=== PATIENT | female | born 1940 | race Asian ===

== ENCOUNTER → 2016-09-27 | Outpatient (CLI) | payer OTHER, SELFPAY ==
--- NOTE | 2016-09-28 08:39 | CR ---
EXAMINATION: Pelvis and bilateral hips HISTORY: Pain COMPARISON: None TECHNIQUE: AP pelvis and 2 views of the hips bilaterally FINDINGS: There is no acute osseous abnormality, dislocation, or fracture identified. Bone mineraliz ation appears osteopenic. The SI joints are symmetric. Joint spaces are grossly preserved. IMPRESSION: Osteopenia without acute osseous abnormality.
--- NOTE | 2016-09-28 08:43 | CR ---
EXAMINATION: Lumbar spine HISTORY: Pain COMPARISON: None TECHNIQUE: AP and lateral views FINDINGS: The lumbar spinal alignment appears grossly normal. Mild to moderate compression deformiti es are noted within the lower thoracic spine. The osseous structures appear osteopenic. Moderate dis c space narrowing is noted at L5-S1. Mild marginal osteophytes are noted. The SI joints are symmetri c. IMPRESSION: 1. Osteopenia with several compression deformities within the thoracic spine. 2. Mild degenerative changes noted within the lumbar spine.
== END ==
LOC: MW.CHORTHO 08:09
PROVIDERS: ATTEND Physician Assistant
DX: M25.551 Pain in right hip (principal); M25.552 Pain in left hip; M85.88 Other specified disorders of bone density and structure, other site; M47.816 Spondylosis without myelopathy or radiculopathy, lumbar region
CPT/HCPCS: 72100; 72100-26; 73521; 73521-26

== ENCOUNTER 2017-04-12 23:35 | Observation (INO) | payer OTHER, SELFPAY ==
[2017-04-12] MEDS ORDERED: Aspirin 81 MG Tab.Chew PO ONE (23:42)
--- NOTE | 2017-04-12 23:44 | EDM.PDOC ---
ED HPI GENERAL MEDICAL PROBLEM - General Stated Complaint: CHEST PAIN Time Seen by Provider: 04/12/17 23:42 Source of Information: Reports: Patient - History of Present Illness INITIAL COMMENTS - FREE TEXT/NARRATIVE: HISTORY AND PHYSICAL: History of present illness: []Patient presents via EMS She's had chest pain for 30-40 minutes she rates 10 out of 10 however she does not appear to be in any pain no pain behaviors she states she is short of breath. She does not appear short of breath no diaphoresis nor radiation to arm neck or jaw Patient has a clear language barrier No nausea vomiting chills sweats no headache dizziness palpitation no bowel or urine symptoms Patient had taken 324 mg aspirin this morning Patient interview with medical interpreter her [place] nurses are able to speak her [place] language and history is similar but more complete Patient has had chest pain off and on over the last week or 2 she has seen her primary care Dr. Costa md last week. At 6 PM tonight she developed 10 out of 10 pain which lasted for a short period is improved to a 5 out of 10 at current again she does not elicit pain behaviors no shortness of breath or diaphoresis no radiation to arm neck or jaw. She does have history of pacemaker placement denies any other cardiac procedure at do note that she is on Plavix she does not know if she has stents present or not but she denies surgical procedure or cardiac catheter. She does state she has a history of hypertension and confirms aspirin was taken this morning Patient also reports fall from a standing position 2 weeks prior which coincides of some low back pain she is describing tonight high lumbar low thoracic region Review of systems: As per history of present illness and below otherwise all systems reviewed and negative. Past medical history: As per history of present illness and as reviewed below otherwise noncontributory. Surgical history: As per history of present illness and as reviewed below otherwise noncontributory. Social history: No reported history of drug or alcohol abuse. Family history: As per history of present illness and as reviewed below otherwise noncontributory. Physical exam: HEENT: Atraumatic, normocephalic, pupils reactive, negative for conjunctival pallor or scleral icterus, mucous membranes moist, throat clear, neck supple, nontender, trachea midline. Lungs: Clear to auscultation, breath sounds equal bilaterally, chest nontender. Heart: S1S2, regular, negative for clicks, rubs, or JVD. Abdomen: Soft, nondistended, nontender. Negative for masses or hepatosplenomegaly. Negative for costovertebral tenderness. Pelvis: Stable nontender. Genitourinary: Deferred. Rectal: Deferred. Extremities: Atraumatic, negative for cords or calf pain. Neurovascular unremarkable. Neuro: Awake, alert, oriented. Cranial nerves II through XII unremarkable. Cerebellum unremarkable. Motor and sensory unremarkable throughout. Exam nonfocal. Diagnostics: []Lab as below EKG Chest 1 view Therapeutics: []Saline 1 25 mL per hour Aspirin 324 mg chewable As provided 1 dose of nitroglycerin glycerin sublingual 0.4 with no change Impression: []Atypical chest pain Pacemaker in place Compression fractures T9 and T12 noted no interval change Patient does have elevated MB and negative troponin, there is stroke history which is put her on aspirin and Plavix, I do not appreciate any weakness at this time I would indicate further stroke to elevate the MB. Dr. Edgar and I did discuss this he will sort this out on an observation basis. My Dragon voice recognition has bolded this print.( I'm not trying to emphasize any point with bold print) Chronic history of baseline Definitive disposition and diagnosis as appropriate pending reevaluation and review of above. Middle Chest Pain Score (Numeric/FACES): 5 - Related Data Allergies Allergy/AdvReac Type Severity Reaction Status Date / Time No Known Allergies Allergy Verified 04/13/17 00:04 Home Meds: Home Meds Aspirin [Halfprin] 81 mg PO BRK 06/10/16 [History] Bisoprolol [Zebeta] 5 mg PO BID 06/10/16 [History] Clopidogrel [Plavix] 75 mg PO DAILY 06/10/16 [History] Losartan [Cozaar] 25 mg PO DAILY 06/10/16 [History] atorvaSTATin [Lipitor] 10 mg PO BEDTIME 06/10/16 [History] traMADol [Ultram] 50 mg PO BID 06/10/16 [History] Past Medical History HEENT History: Reports: Glaucoma Cardiovascular History: Reports: Arrhythmia, Hypertension, Pacemaker Musculoskeletal History: Reports: Arthritis - Past Surgical History HEENT Surgical History: Reports: Other (See Below) Social & Family History - Family History Family Medical History: Noncontributory - Tobacco Use Smoking Status *Q: Never Smoker - Caffeine Use Caffeine Use: Reports: None - Recreational Drug Use Recreational Drug Use: No ED ROS GENERAL - Review of Systems Review Of Systems: ROS reveals no pertinent complaints other than HPI. ED EXAM, GENERAL - Physical Exam Exam: See Below Course - Vital Signs Last Recorded V/S: Last Vital Signs Temp 36.6 C 04/12/17 23:48 Pulse 70 04/13/17 00:45 Resp 22 H 04/13/17 00:45 BP 123/71 04/13/17 00:45 Pulse Ox 99 04/13/17 00:45 - Orders/Labs/Meds Orders: Active Orders 24 hr Category Date Time Status Chest 1V Frontal [CR] Stat Exams 04/12/17 23:48 Taken Lumbar Spine 2 or 3V [CR] Stat Exams 04/12/17 23:52 Taken Thoracic Spine 2V [CR] Stat Exams 04/12/17 23:53 Taken B-TYPE NATRIURETIC PEPTIDE,BNP [CHEM] Stat Lab 04/13/17 00:44 Received UA W/MICROSCOPIC [URIN] Stat Lab 04/12/17 23:42 Uncollected Sodium Chloride 0.9% [Normal Saline] 1,000 ml Med 04/12/17 23:45 Active IV STAT Medication Orders Sodium Chloride (Normal Saline) 1,000 mls @ 125 mls/hr IV STAT MARIA TERESA Last Admin: 04/12/17 23:56 Dose: 125 mls/hr Labs: Laboratory Tests 04/12/17 04/12/17 04/12/17 Range/Units 23:52 23:52 23:52 WBC 9.58 (4.0-11.0) K/uL RBC 3.78 L (4.30-5.90) M/uL Hgb 10.4 L (12.0-16.0) g/dL Hct 32.8 L (36.0-46.0) % MCV 86.8 (80.0-98.0) fL MCH 27.5 (27.0-32.0) pg MCHC 31.7 (31.0-37.0) g/dL RDW Std Deviation 50.1 (28.0-62.0) fl RDW Coeff of [place] 16 H (11.0-15.0) % Plt Count 309 (150-400) K/uL MPV 9.30 (7.40-12.00) fL Neut % (Auto) 76.0 (48.0-80.0) % Lymph % (Auto) 13.6 L (16.0-40.0) % [place] % (Auto) 9.5 (0.0-15.0) % Eos % (Auto) 0.7 (0.0-7.0) % Baso % (Auto) 0.2 (0.0-1.5) % Neut # (Auto) 7.3 H (1.4-5.7) K/uL Lymph # (Auto) 1.3 (0.6-2.4) K/uL [place] # (Auto) 0.9 H (0.0-0.8) K/uL Eos # (Auto) 0.1 (0.0-0.7) K/uL Baso # (Auto) 0.0 (0.0-0.1) K/uL Nucleated RBC % 0.0 /100WBC Nucleated RBCs # 0 K/uL Sodium 132 L (136-146) mmol/L Potassium 5.0 (3.5-5.1) mmol/L Chloride 101 (98-110) mmol/L Carbon Dioxide 22 (21-31) mmol/L BUN 40 H (6.0-23.0) mg/dL Creatinine 1.5 (0.6-1.5) mg/dL Est Cr Clr Drug Dosing 21.66 mL/min Estimated GFR (MDRD) 33.9 ml/min Glucose 132 H (60-110) mg/dL Calcium 8.8 (8.8-10.8) mg/dL Total Bilirubin 0.3 (0.1-1.5) mg/dL AST 36 (5-40) IU/L ALT 23 (8-54) IU/L Alkaline Phosphatase 149 (40-150) Creatine Kinase 233 (9-236) IU/L CK-MB (CK-2) 23.1 H (0-6.6) ng/ml Troponin I < 0.10 (0.0-0.29) NG/ML Total Protein 9.4 H (6.0-8.0) g/dL Albumin 3.1 L (3.4-4.8) g/dL Globulin 6.3 H (2.0-3.5) g/dL Albumin/Globulin Ratio 0.5 L (1.3-2.8) Amylase 74 (10-90) U/L Lipase 45 (7-80) U/L Meds: Medications Generic Name Dose Route Start Last Admin Trade Name Rashad PRN Reason Stop Dose Admin Sodium Chloride 1,000 mls @ 125 mls/hr 04/12/17 23:45 04/12/17 23:56 Normal Saline IV 125 mls/hr STAT MARIA TERESA Administration Discontinued Medications Generic Name Dose Route Start Last Admin Trade Name Rashad PRN Reason Stop Dose Admin Aspirin 324 mg 04/12/17 23:42 04/12/17 23:57 Aspirin PO 04/12/17 23:43 324 mg ONETIME ONE Administration Metoprolol Tartrate 5 mg 04/12/17 23:45 04/12/17 23:57 Lopressor IVPUSH 04/12/17 23:56 5 mg Q5M MARIA TERESA Administration Departure - Departure Time of Disposition: 00:54 Disposition: Refer to Observation Condition: Fair Clinical Impression: Atypical chest pain, Elevated CK-MB level - Discharge Information Referrals: PCP,None [Primary Care Provider] - - My Orders Last 24 Hours: My Active Orders 04/12/17 23:42 UA W/MICROSCOPIC [URIN] Stat 04/12/17 23:45 Sodium Chloride 0.9% [Normal Saline] 1,000 ml IV STAT 04/12/17 23:48 Chest 1V Frontal [CR] Stat 04/12/17 23:52 Lumbar Spine 2 or 3V [CR] Stat 04/12/17 23:53 Thoracic Spine 2V [CR] Stat 04/13/17 00:44 B-TYPE NATRIURETIC PEPTIDE,BNP [CHEM] Stat - Assessment/Plan Last 24 Hours: My Active Orders 04/12/17 23:42 UA W/MICROSCOPIC [URIN] Stat 04/12/17 23:45 Sodium Chloride 0.9% [Normal Saline] 1,000 ml IV STAT 04/12/17 23:48 Chest 1V Frontal [CR] Stat 04/12/17 23:52 Lumbar Spine 2 or 3V [CR] Stat 04/12/17 23:53 Thoracic Spine 2V [CR] Stat 04/13/17 00:44 B-TYPE NATRIURETIC PEPTIDE,BNP [CHEM] Stat
[2017-04-12] MEDS ORDERED: Sodium Chloride 0.9% 1,000 ML IV SCH (23:45)
[2017-04-12] MEDS: Metoprolol Tartrate 5 MG/5 ML SDV IVPUSH SCH (23:57)
[2017-04-13] MEDS ORDERED: Acetaminophen 325 MG Tab PO PRN (02:01)
[2017-04-13] MEDS ORDERED: Ondansetron 4 MG Tab PO PRN (02:01)
[2017-04-13] MEDS ORDERED: Morphine 2 MG/ML Syringe IVPUSH PRN (02:01)
[2017-04-13] MEDS: Metoprolol Tartrate 5 MG/5 ML SDV IVPUSH SCH ×2 (07:28→07:29)
--- NOTE | 2017-04-13 08:34 | PCM.DCSUM1 ---
Discharge Summary - Discharge Data Discharge Disposition: Home, Self-Care 01 Condition: Fair - Discharge Plan Home Medications: Home Meds Aspirin [Halfprin] 81 mg PO BRK 06/10/16 [History] Bisoprolol [Zebeta] 5 mg PO DAILY 06/10/16 [History] Clopidogrel [Plavix] 75 mg PO DAILY 06/10/16 [History] Losartan [Cozaar] 25 mg PO DAILY 06/10/16 [History] atorvaSTATin [Lipitor] 10 mg PO BEDTIME 06/10/16 [History] Forms: ED Department Discharge Referrals: PCP,None [Primary Care Provider] - - Patient Data Vitals - Most Recent: Last Vital Signs Temp 97.5 F 04/13/17 04:00 Pulse 66 04/13/17 04:00 Resp 16 04/13/17 04:00 BP 130/59 L 04/13/17 04:00 Pulse Ox 100 04/13/17 04:00 Weight - Most Recent: 41.7 kg I&O - Last 24 hours: Intake & Output 04/12/17 04/13/17 04/13/17 22:59 06:59 14:59 Intake Total 750 Balance 750 Lab Results - Last 24 hrs: Laboratory Results - last 24 hr 04/13/17 04/13/17 Range/Units 01:00 06:12 Troponin I < 0.10 (0.0-0.29) NG/ML Urine Color YELLOW Urine Appearance HAZY Urine pH 5.5 (5.0-8.0) Ur Specific [place] 1.025 (1.001-1.035) Urine Protein TRACE (NEGATIVE) mg/dL Urine Glucose (UA) NEGATIVE (NEGATIVE) mg/dL Urine Ketones NEGATIVE (NEGATIVE) mg/dL Urine Occult Blood NEGATIVE (NEGATIVE) Urine Nitrite NEGATIVE (NEGATIVE) Urine Bilirubin NEGATIVE (NEGATIVE) Urine Urobilinogen 0.2 (<2.0) EU/dL Ur Leukocyte Esterase TRACE (NEGATIVE) Urine RBC 1-3 (0-2/HPF) Urine WBC 3-5 (0-5/HPF) Ur Epithelial Cells FEW (NONE-FEW) Urine Bacteria FEW (NEGATIVE) Med Orders - Current: Current Medications Acetaminophen (Tylenol) 650 mg PO Q6H PRN PRN Reason: Pain Morphine Sulfate (Morphine) 2 mg IVPUSH Q4H PRN PRN Reason: Chest Pain Ondansetron HCl (Zofran) 4 mg PO Q6H PRN PRN Reason: Nausea/Vomiting Last Admin: 04/13/17 07:29 Dose: 4 mg Discontinued Medications Aspirin (Aspirin) 324 mg PO ONETIME ONE Stop: 04/12/17 23:43 Last Admin: 04/12/17 23:57 Dose: 324 mg Sodium Chloride (Normal Saline) 1,000 mls @ 125 mls/hr IV STAT MARIA TERESA Last Admin: 04/12/17 23:56 Dose: 125 mls/hr Metoprolol Tartrate (Lopressor) 5 mg IVPUSH Q5M MARIA TERESA Stop: 04/12/17 23:56 Last Admin: 04/13/17 07:29 Dose: Not Given *Q Meaningful Use (DIS) - VTE *Q VTE Criteria *Q: - Stroke *Q Stroke Criteria *Q: - AMI *Q AMI Criteria *Q:
--- NOTE | 2017-04-13 08:34 | PCM.HP ---
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 She reports she hasn't been feeling well recently and has been losing weight and has a poor appetite. She reports this pain as an achey feeling and it was like she couldn't take a deep breath, " I thought I was dying." She reports she is on "a lot of medications by Dr Nesbitt", her PCP. She recently saw him and had a US of neck lump to her R and for the concerns of weight loss. She is feeling better this morning no chest pain or SOB. She also reports her grand son has jumped on her playing around causing some upper back pain. SHe does have a significant hx of osteoporosis and back pain. In the ED, Hgb 10.4, Na 132, BUN 40, Cr 1.5, which is elevated from baseline [address] Nesbitt. Troponin negative, EKG SR with noted LVH, no ST segment elevation. CXR revealed scarring in r apex of pleural parenchyma, mild noted in left apex. Pacer noted to Left chest, heart silhouette normal in size, it noted a new convex density over the paratracheal region measuring 4.5 cm in diameter, recommended chest CT to further evaluate. Lumbar spine xray noted moderate compression deformity of T12, likely chronic, thoracic spine xray noted moderate to severe compression deformities of T9 and t12, severe diffuse osteopenia present. I reveiwed recent records from Dr. Nesbitt, she had complaints of weight loss and poor appetite at last appointment. Dr. Nesbitt had started work up for anemia and ordered for her to test her stools for occult blood due to anemia. I ordered a iron panel which he recommended as well, I will add a peripheral smear on too. She also had an ultrasound for R neck lump, biopsy was recommended will check to see if this was set up, if not with facilitate this as well. She was to be set up with cardiology for check up due to history and pacemaker interrogation. Middle Chest Pain Score (Numeric/FACES): 2 - Related Data Allergies/Adverse Reactions: Allergies Allergy/AdvReac Type Severity Reaction Status Date / Time No Known Allergies Allergy Verified 04/13/17 00:04 Home Medications: Home Meds Aspirin [Halfprin] 81 mg PO BRK 06/10/16 [History] Bisoprolol [Zebeta] 5 mg PO DAILY 06/10/16 [History] Clopidogrel [Plavix] 75 mg PO DAILY 06/10/16 [History] Losartan [Cozaar] 25 mg PO DAILY 06/10/16 [History] atorvaSTATin [Lipitor] 10 mg PO BEDTIME 06/10/16 [History] Acetaminophen [Tylenol] 650 mg PO Q6H PRN tablet 04/13/17 [Rx] Past Medical History HEENT History: Reports: Glaucoma Cardiovascular History: Reports: Afib, Hypertension, Pacemaker. Denies: Heart Failure, Stents Other Cardiovascular History: with pacemaker Respiratory History: Reports: SOB. Denies: COPD, PE, Sleep Apnea Gastrointestinal History: Reports: Other (See Below) (poor appetite). Denies: GERD, GI Bleed Genitourinary History: Reports: None ERP PM History: Reports: Musculoskeletal History: Reports: Arthritis, Back Pain, Chronic, Osteoporosis, RA Psychiatric History: Reports: None Endocrine/Metabolic History: Reports: Osteoporosis. Denies: Diabetes, Type II, Hypothyroidism Hematologic History: Reports: Anemia - Infectious Disease History Infectious Disease History: Reports: Chicken Pox - Past Surgical History Female Surgical History: Reports: Section Social & Family History - Family History Family Medical History: Noncontributory - Tobacco Use Smoking Status *Q: Never Smoker Second Hand Smoke Exposure: No - Caffeine Use Caffeine Use: Reports: Soda Other Caffeine Use: daughter states occasional soda drinks - Recreational Drug Use Recreational Drug Use: No - Living Situation & Occupation Living situation: Reports: with Family Occupation: Retired H&P Review of Systems - Review of Systems: Review Of Systems: See Below General: Reports: Decreased Appetite, Weight Loss HEENT: Reports: Other (reports some trouble with swallowing intermittently). Denies: Headaches, Sore Throat Pulmonary: Reports: Shortness of Breath (initially last evening, but no troubles this morning. ). Denies: Wheezing, Cough, Sputum Cardiovascular: Reports: Chest Pain (upon admission, denies now.). Denies: Palpitations, Dyspnea on Exertion, Orthopnea, Edema, Syncope Gastrointestinal: Reports: Anorexia, Flatus. Denies: Abdominal Pain, Black Stool, Bloody Stool, Diarrhea, Nausea, Vomiting Genitourinary: Denies: No Symptoms, Dysuria, Frequency, Burning Musculoskeletal: Reports: Shoulder Pain (R upper shoulder and lower mid back, which is chronic) Neurological: Reports: No Symptoms. Denies: Confusion Hematologic/Lymphatic: Reports: No Symptoms Immunologic: Reports: No Symptoms Exam - Exam Exam: See Below - Vital Signs Vital Signs: Last Vital Signs Temp 97.5 F 04/13/17 04:00 Pulse 66 04/13/17 04:00 Resp 16 04/13/17 04:00 BP 130/59 L 04/13/17 04:00 Pulse Ox 100 04/13/17 04:00 Weight: 41.7 kg - Exam Quality Assessment: Supplemental Oxygen General: Alert, Oriented, Cooperative, Other (Near cachectic looking, very skinny and dry skin) HEENT: Conjunctiva Clear, Hearing Intact, Mucosa Moist & [place], Nares Patent, Pupils Equal, Other (L cleft lip palate repair noted, speech impaired slightly due to this. Missing loose teeth noted.) Neck: Trachea Midline, Other (Fullness and lump noted to R neck near trachea. ) Lungs: Clear to Auscultation, Normal Respiratory Effort Cardiovascular: Regular Rate, Regular Rhythm, Normal S1, Normal S2 GI/Abdominal Exam: Normal Bowel Sounds, Soft, Non-Tender, No Organomegaly, No Distention, No Abnormal Bruit, No Mass, Pelvis Stable Neuro Extensive - Mental Status: Alert, Oriented x3, Normal Mood/Affect, Normal Cognition Psychiatric: Alert, Normal Affect, Normal Mood - Patient Data Lab Results Last 24 hrs: Laboratory Results - last 24 hr 04/13/17 04/13/17 Range/Units 01:00 06:12 Troponin I < 0.10 (0.0-0.29) NG/ML Urine Color YELLOW Urine Appearance HAZY Urine pH 5.5 (5.0-8.0) Ur Specific [place] 1.025 (1.001-1.035) Urine Protein TRACE (NEGATIVE) mg/dL Urine Glucose (UA) NEGATIVE (NEGATIVE) mg/dL Urine Ketones NEGATIVE (NEGATIVE) mg/dL Urine Occult Blood NEGATIVE (NEGATIVE) Urine Nitrite NEGATIVE (NEGATIVE) Urine Bilirubin NEGATIVE (NEGATIVE) Urine Urobilinogen 0.2 (<2.0) EU/dL Ur Leukocyte Esterase TRACE (NEGATIVE) Urine RBC 1-3 (0-2/HPF) Urine WBC 3-5 (0-5/HPF) Ur Epithelial Cells FEW (NONE-FEW) Urine Bacteria FEW (NEGATIVE) Result Diagrams: 04/13/17 08:47 04/13/17 08:47 EKG INTERPRETATION EKG Date: 04/13/17 Rhythm: NSR Rate (Beats/Min): 64 QRS: Other (LVH) *Q Meaningful Use (ADM) - VTE *Q VTE Criteria *Q: - Stroke *Q Stroke Criteria *Q: - AMI *Q AMI Criteria *Q: - Problem List (1) Atypical chest pain SNOMED Code(s): 984024798 ICD Code: R07.89 - OTHER CHEST PAIN Status: Acute Current Visit: Yes (2) Dyspnea SNOMED Code(s): 085765804 ICD Code: R06.00 - DYSPNEA, UNSPECIFIED Status: Acute Current Visit: Yes Qualifiers: Dyspnea type: shortness of breath Qualified Code(s): R06.02 - Shortness of breath; R06.00 - Dyspnea, unspecified; R06.01 - Orthopnea (3) Neck mass SNOMED Code(s): 183838670 ICD Code: R22.1 - LOCALIZED SWELLING, MASS AND LUMP, NECK Status: Acute Current Visit: Yes Problem Details: currently being worked up for and has biopsy scheduled. (4) Anemia SNOMED Code(s): 800014202 ICD Code: D64.9 - ANEMIA, UNSPECIFIED Status: Acute Current Visit: Yes Qualifiers: Anemia type: unspecified type Qualified Code(s): D64.9 - Anemia, unspecified (5) HTN (hypertension) SNOMED Code(s): 66013343 ICD Code: I10 - ESSENTIAL (PRIMARY) HYPERTENSION Status: Chronic Current Visit: Yes Qualifiers: Hypertension type: essential hypertension Qualified Code(s): I10 - Essential (primary) hypertension (6) Dyslipidemia SNOMED Code(s): 442425372 ICD Code: E78.5 - HYPERLIPIDEMIA, UNSPECIFIED Status: Chronic Current Visit: Yes (7) Osteoporosis SNOMED Code(s): 66794180 ICD Code: M81.0 - AGE-RELATED OSTEOPOROSIS W/O CURRENT PATHOLOGICAL FRACTURE Status: Chronic Current Visit: Yes (8) Arthritis SNOMED Code(s): 6438611 ICD Code: M19.90 - UNSPECIFIED OSTEOARTHRITIS, UNSPECIFIED SITE Status: Chronic Current Visit: Yes (9) Chronic back pain SNOMED Code(s): 403887605 ICD Code: M54.9 - DORSALGIA, UNSPECIFIED; G89.29 - OTHER CHRONIC PAIN Status: Chronic Current Visit: Yes Qualifiers: Back pain location: low back pain Back pain laterality: bilateral Sciatica presence: without sciatica Qualified Code(s): M54.5 - Low back pain; G89.29 - Other chronic pain; G89.29 - Other chronic pain (10) History of CVA (cerebrovascular accident) SNOMED Code(s): 704679406 ICD Code: Z86.73 - PRSNL HX OF TIA (TIA), AND CEREB INFRC W/O RESID DEFICITS Status: Chronic Current Visit: Yes (11) Rheumatoid arthritis SNOMED Code(s): 07016191 ICD Code: M06.9 - RHEUMATOID ARTHRITIS, UNSPECIFIED Status: Chronic Current Visit: Yes (12) Hx of cardiac pacemaker SNOMED Code(s): 329827364 ICD Code: Z95.0 - PRESENCE OF CARDIAC PACEMAKER Status: Chronic Current Visit: Yes Problem List Initiated/Reviewed/Updated: Yes Orders Last 24hrs: Active Orders 24 hr Category Date Time Status Admission Status [Patient Status] [ADT] Routine ADT 04/13/17 01:59 Active Cardiac Monitoring [RC] . DIRECTED Care 04/13/17 01:59 Inactive EKG 12 Lead [EKG Documentation Completion] [RC] AM Care 04/13/17 08:00 Active Telemetry Monitoring [Cardiac Monitoring] [RC] . Care 04/13/17 01:59 Active DIRECTED Heart Healthy Diet [DIET] Diet 04/13/17 Breakfast Active TROPONIN I [CHEM] Q6H Lab 04/13/17 11:50 Ordered Acetaminophen [Tylenol] Med 04/13/17 02:01 Active 650 mg PO Q6H PRN Morphine Med 04/13/17 02:01 Active 2 mg IVPUSH Q4H PRN Ondansetron [Zofran] Med 04/13/17 02:01 Active 4 mg PO Q6H PRN Medication Orders Acetaminophen (Tylenol) 650 mg PO Q6H PRN PRN Reason: Pain Morphine Sulfate (Morphine) 2 mg IVPUSH Q4H PRN PRN Reason: Chest Pain Ondansetron HCl (Zofran) 4 mg PO Q6H PRN PRN Reason: Nausea/Vomiting Last Admin: 04/13/17 07:29 Dose: 4 mg Assessment/Plan Comment:: This 76 year old female admitted for atypical chest pain and SOB. 1. Atypical chest pain: Trending troponins. Telemetry, SR. Does have hx of afib. Will monitor, pain does not appear to be cardiac in nature, but does have referral to follow up with Dr. Burger for pacemaker and cardiac hx. Pain likely due to musculoskeletal concerns and hx of osteoporosis. Also concerned about mass in neck. SOB likely secondary to pain. 2. Neck mass: Will obtain chest CT today. She does have biopsy scheduled April 20 with our radiology. 3. Anemia: Iron studies and peripheral smear ordered today. Will pass along to Dr. Nesbitt. She denies black or bloody stools. VTE prophylaxis: SCDs for now due to new anemia. Dispo: Probable discharge this afternoon after CT and last troponin DISCHARGE DIAGNOSES: Atypical chest pain- likely musculoskeletal in nature HTN Dyslipidemia HX pacemaker Hx a fib Dianna wsa admitted and ACS ruled out, all troponins negative with telemetry SR with no ST segment changes. She is complaining of some shoulder pain and low back pain, achey in nature. pain is reproducible to shoulder and back with movement and palpation. Pain is likely musculoskeletal in nature due to history of grandson climbing and jumping on her and hx of osteoporosis and compression fractures. She should not be doing strenuous activities and family should be careful with grandson near her. She has follow up with Dr. Nesbitt scheduled as well as with Dr. Burger as previously scheduled. She also has biopsy of R neck mass next week as well. CT of chest revealed extensive biapical scarring with volume loss, secondary to hx of TB. the convex irregularity likely represented superior positioning of right pulmonary artery due to volume loss, central airways grossly clear, moderate compression deformities with thoracic spine.Iron studies reveal iron defieciency anemia, peripheral smear pending, Dr. Nesbitt, PCP to follow. Reports she is taking iron supplements at home. She will be discharge today with follow ups listed above. She is to return to ED or clinic if concerns should arise.
[2017-04-13] MEDS ORDERED: Sodium Chloride 0.9% 1,000 ML IV SCH (08:45)
[2017-04-13 11:58] VITALS: BP 105/57
[2017-04-13] MEDS ORDERED: Clopidogrel 75 MG Tab PO SCH (13:30)
--- NOTE | 2017-04-13 13:38 | CR ---
EXAM DATE: 04/13/17 PATIENT'S AGE: 76 Patient: ALIYA TOWNSEND Facility: [place], [place] Site . Site : 1940 Study: XRay Spine Lumbar [id number]/5/2017 12:21:16 AM Ordering Physician: Tabitha Duarte Final Report: INDICATION: Low back pain from a fall TECHNIQUE: Lumbar spine radiograph 3 view COMPARISON: None FINDINGS: Bones: Alignment is normal. Moderate compression deformity of T12 is present and likely chronic. Joints: Moderate to severe degenerative disc narrowing seen at L5-S1. The facet joints are unremarkable in appearance. Soft tissues: Unremarkable. IMPRESSION: 1. Moderate compression deformity of T12 is present and likely chronic. Dictated by Marcus Benavides MD @ 04/13/2017 12:22:58 AM Dictated by: Marcus Benavides MD @ 04/13/2017 00:23:04 (Electronic Signature) Report Signed by Proxy. RIGO
--- NOTE | 2017-04-13 13:38 | CR ---
EXAM DATE: 04/13/17 PATIENT'S AGE: 76 Patient: ALIYA TOWNSEND Facility: [place], [place] Site . Site : 1940 Study: XRay Chest [id number]/5/2017 12:21:32 AM Ordering Physician: Tabitha Duarte Final Report: INDICATION: Chest pain from a fall TECHNIQUE: Chest radiograph 1 view COMPARISON: None FINDINGS: Cardiovascular and mediastinum: The heart silhouette is normal in size and morphology. There is a convex density over the right paratracheal region measuring 4.5 cm in diameter. Left cardiac pacer is noted with leads in the right ventricle. Lungs and pleural spaces: Pleural parenchymal scarring is seen in the right apex with architectural distortion. Mild scarring is seen in the left apex. No sign of pleural effusion seen. No pneumothorax is identified. Bones and soft tissues: No significant findings. IMPRESSION: 1. There is a convex density over the right paratracheal region measuring 4.5 cm in diameter. This may be due to cephalad retraction of the left hilum from new right apical scarring. Assessment with chest CT may be helpful to exclude mediastinal mass or aneurysm. Dictated by Marcus Benavides MD @ 04/13/2017 12:24:50 AM Dictated by: Marcus Benavides MD @ 04/13/2017 00:25:06 (Electronic Signature) Report Signed by Proxy. [facility] CENTERRuby
--- NOTE | 2017-04-13 13:39 | CR ---
EXAM DATE: 04/13/17 PATIENT'S AGE: 76 Patient: ALIYA TOWNSEND Facility: [place], [place] Site . Site : 1940 Study: XRay Spine Thoracic [id number]/5/2017 12:21:48 AM Ordering Physician: Tabitha Duarte Final Report: INDICATION: Mid back pain from a fall TECHNIQUE: Thoracic spine radiograph 3 view COMPARISON: 09/27/2016. FINDINGS: Bones: Alignment is normal. Moderate to severe compression deformities of T9 and T12 are noted without interval change. The cervicothoracic junction is not well visualized on the lateral exam. Severe diffuse osteopenia is present. Joints: Disc spaces are unremarkable. The facet joints are unremarkable in appearance. Soft tissues: Unremarkable. IMPRESSION: 1. Moderate to severe compression deformities of T9 and T12 are noted without interval change. 2. The cervicothoracic region is not well seen. If there is pain or tenderness in this region, evaluation with a Swimmer`s view is recommended. Dictated by Marcus Benavides MD @ 04/13/2017 12:26:54 AM Dictated by: Marcus Benavides MD @ 04/13/2017 00:26:57 (Electronic Signature) Report Signed by Proxy. RIGO
--- NOTE | 2017-04-13 13:56 | CT ---
EXAMINATION: CT chest without contrast HISTORY: Convex density within the right paratracheal region. COMPARISON: Chest radiograph dated 04/13/2017 TECHNIQUE: Axial CT images obtained through the chest without contrast. Coronal and sagittal reconstr uctions obtained. FINDINGS: There is prominent biapical scarring with volume loss noted within the right upper lobe. Sc arring and volume loss also noted within the lingula and right middle lobes. No definite discrete nod ule. The heart is normal in size without a pericardial effusion. The convex irregularity previously d escribed likely represent superior positioning of the right pulmonary artery secondary to volume loss . No bulky mediastinal lymphadenopathy. Nonpathologically enlarged bilateral axillary lymph nodes not ed. There is a left-sided ICD. No pneumothorax or pleural effusion. The central airways are grossly c lear. The visualized images of the upper abdomen appear normal. Multiple [id number] compression defor mities noted within the thoracic spine most prominent at T7, T9, T12. IMPRESSION: 1. Extensive biapical scarring and volume loss most prominent on the right. 2. The convex irregularity previously mentioned cathy right main pulmonary artery. 3. Multiple [id number] compression deformities within the thoracic spine, age indeterminate.
[2017-04-13] MEDS ORDERED: atorvaSTATin 10 MG Tab PO SCH (21:00)
[2017-04-14] MEDS ORDERED: Aspirin 81 MG Tab.EC PO SCH (08:00)
[2017-04-14] MEDS ORDERED: BISOPROLOL 5 MG PO SCH (09:00)
[2017-04-14] MEDS ORDERED: Losartan 50 MG Tab PO SCH (09:00)
== END 2017-04-13 15:43 | disposition home or self-care (01) ==
LOC: MW.ED 23:35 → MW.MS 04-13 00:56
PROVIDERS: ADMIT Internal Medicine; ATTEND Internal Medicine
DX: R07.89 Other chest pain (principal); R06.00 Dyspnea, unspecified; R22.1 Localized swelling, mass and lump, neck; D64.9 Anemia, unspecified; I10 Essential (primary) hypertension; E78.5 Hyperlipidemia, unspecified; M81.0 Age-related osteoporosis without current pathological fracture; M19.90 Unspecified osteoarthritis, unspecified site; M54.9 Dorsalgia, unspecified; G89.29 Other chronic pain; M06.9 Rheumatoid arthritis, unspecified; I48.91 Unspecified atrial fibrillation; Z86.73 Personal history of transient ischemic attack (TIA), and cerebral infarction without residual deficits; Z79.02 Long term (current) use of antithrombotics/antiplatelets; Z79.82 Long term (current) use of aspirin; Z79.899 Other long term (current) drug therapy; Z95.0 Presence of cardiac pacemaker; Z98.890 Other specified postprocedural states
CPT/HCPCS: 36415; 71010; 71250; 72070; 72100; 80053; 81001; 82150; 82550; 82553; 82607; 82728; 82746; 83550; 83690; 83735; 83880; 84484; 85025; 85045; 88104; 93005; 96361; 96374; 99285; A9270; J7040; 96375; 99283; G0378

== ENCOUNTER 2017-05-04 07:18 | Inpatient (IN) | payer OTHER, SELFPAY ==
[2017-05-04] MEDS ORDERED: Sodium Chloride 0.9% 2.5 ML Syringe FLUSH PRN (07:21)
[2017-05-04] MEDS ORDERED: Sodium Chloride 0.9% 10 ML Syringe FLUSH PRN (07:21)
[2017-05-04] MEDS ORDERED: Sodium Chloride 0.9% 1,000 ML IV ONE (07:21)
[2017-05-04 08:39] LABS: CHLORIDE,CL 106 mmol/L (98-110); SODIUM,NA 134 mmol/L (136-146)
[2017-05-04] MEDS ORDERED: Ketorolac 30 MG/ML SDV IVPUSH ONE (08:39)
--- NOTE | 2017-05-04 08:57 | EDM.PDOC ---
ED HPI GENERAL MEDICAL PROBLEM - General Chief Complaint: Abdominal Pain Stated Complaint: AMBULANCE Time Seen by Provider: 05/04/17 07:20 Source of Information: Reports: Patient History Limitations: Reports: No Limitations - History of Present Illness INITIAL COMMENTS - FREE TEXT/NARRATIVE: History of present illness: []Patient developed right-sided abdominal pain at 5:00 this morning with extreme weakness, lightheadedness and dizziness. She also complains of a mild headache. Denies any fevers, chills, nausea, vomiting or diarrhea. Patient has never had a colonoscopy. Review of systems: As per history of present illness and below otherwise all systems reviewed and negative. Past medical history: As per history of present illness and as reviewed below otherwise noncontributory. Surgical history: As per history of present illness and as reviewed below otherwise noncontributory. Social history: No reported history of drug or alcohol abuse. Family history: As per history of present illness and as reviewed below otherwise noncontributory. Physical exam: General: Well developed, well nourished in NAD HEENT: Atraumatic, normocephalic, pupils reactive, negative for conjunctival pallor or scleral icterus, mucous membranes moist, throat clear, neck supple, nontender, trachea midline. Lungs: Clear to auscultation, breath sounds equal bilaterally, chest nontender. Heart: S1S2, regular, negative for clicks, rubs, or JVD. Abdomen: Soft, nondistended, nontender. Negative for masses or hepatosplenomegaly. Negative for costovertebral tenderness. Pelvis: Stable nontender. Genitourinary: Deferred. Rectal: Maroon blood on rectal exam strongly guaiac positive Extremities: Atraumatic, negative for cords or calf pain. Neurovascular unremarkable. Neuro: Awake, alert, oriented. Cranial nerves II through XII unremarkable. Cerebellum unremarkable. Motor and sensory unremarkable throughout. Exam nonfocal. Diagnostics: []Labs showing a decreased H&H 8 and 26. Chemistry showing elevated potassium, CTA abdomen and pelvis preliminary result is normal Therapeutics: []IV hydrated Impression: []GI bleed, anemia, generalized weakness, hyperkalemia Plan: []Admit for further workup Definitive disposition and diagnosis as appropriate pending reevaluation and review of above. Middle Abdominal Pain Score (Numeric/FACES): 5 - Related Data Allergies Allergy/AdvReac Type Severity Reaction Status Date / Time No Known Allergies Allergy Verified 04/13/17 00:04 Home Meds: Home Meds Aspirin [Halfprin] 81 mg PO BRK 06/10/16 [History] Bisoprolol [Zebeta] 5 mg PO DAILY 06/10/16 [History] Clopidogrel [Plavix] 75 mg PO DAILY 06/10/16 [History] Losartan [Cozaar] 25 mg PO DAILY 06/10/16 [History] atorvaSTATin [Lipitor] 10 mg PO BEDTIME 06/10/16 [History] Acetaminophen [Tylenol] 650 mg PO Q6H PRN tablet 04/13/17 [Rx] Past Medical History HEENT History: Reports: Glaucoma Cardiovascular History: Reports: Arrhythmia, Hypertension, Pacemaker Other Cardiovascular History: with pacemaker Respiratory History: Reports: SOB Gastrointestinal History: Reports: Other (See Below) (poor appetite). 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: Musculoskeletal History: Reports: Arthritis Psychiatric History: Reports: None Endocrine/Metabolic History: Reports: Osteoporosis Hematologic History: Reports: Anemia - Infectious Disease History Infectious Disease History: Reports: TB - Past Surgical History Female Surgical History: Reports: Section Social & Family History - Family History Family Medical History: Noncontributory - Tobacco Use Smoking Status *Q: Never Smoker Second Hand Smoke Exposure: No - Caffeine Use Caffeine Use: Reports: None Other Caffeine Use: daughter states occasional soda drinks - Recreational Drug Use Recreational Drug Use: No - Living Situation & Occupation Living situation: Reports: with Family Occupation: Retired ED ROS GENERAL - Review of Systems Review Of Systems: See Below (See history of present illness) ED EXAM, GI/ABD - Physical Exam Exam: See Below (See history of present illness) Course - Vital Signs Last Recorded V/S: Last Vital Signs Temp 36.5 C 05/04/17 10:10 Pulse 74 05/04/17 10:10 Resp 16 05/04/17 10:10 BP 114/61 05/04/17 10:10 Pulse Ox 98 05/04/17 10:10 - Orders/Labs/Meds Orders: Active Orders 24 hr Category Date Time Status EKG Documentation Completion [RC] STAT Care 05/04/17 07:21 Active Sodium Chloride 0.9% [Saline Flush] Med 05/04/17 07:21 Active 10 ml FLUSH ASDIRECTED PRN Sodium Chloride 0.9% [Saline Flush] Med 05/04/17 07:21 Active 2.5 ml FLUSH ASDIRECTED PRN Saline Lock Insert [OM.PC] Stat Oth 05/04/17 07:21 Ordered Medication Orders Sodium Chloride (Saline Flush) 10 ml FLUSH ASDIRECTED PRN PRN Reason: Keep Vein Open Sodium Chloride (Saline Flush) 2.5 ml FLUSH ASDIRECTED PRN PRN Reason: Keep Vein Open Labs: Laboratory Tests 05/04/17 05/04/17 05/04/17 Range/Units 07:41 07:41 08:06 WBC 4.92 (4.0-11.0) K/uL RBC 3.05 L (4.30-5.90) M/uL Hgb 8.3 L (12.0-16.0) g/dL Hct 26.8 L (36.0-46.0) % MCV 87.9 (80.0-98.0) fL MCH 27.2 (27.0-32.0) pg MCHC 31.0 (31.0-37.0) g/dL RDW Std Deviation 51.3 (28.0-62.0) fl RDW Coeff of [place] 16 H (11.0-15.0) % Plt Count 309 (150-400) K/uL MPV 9.50 (7.40-12.00) fL Neut % (Auto) 72.4 (48.0-80.0) % Lymph % (Auto) 18.3 (16.0-40.0) % [place] % (Auto) 7.9 (0.0-15.0) % Eos % (Auto) 1.0 (0.0-7.0) % Baso % (Auto) 0.4 (0.0-1.5) % Neut # (Auto) 3.6 (1.4-5.7) K/uL Lymph # (Auto) 0.9 (0.6-2.4) K/uL [place] # (Auto) 0.4 (0.0-0.8) K/uL Eos # (Auto) 0.1 (0.0-0.7) K/uL Baso # (Auto) 0.0 (0.0-0.1) K/uL Nucleated RBC % 0.0 /100WBC Nucleated RBCs # 0 K/uL Sodium 134 L (136-146) mmol/L Potassium 5.5 H (3.5-5.1) mmol/L Chloride 106 (98-110) mmol/L Carbon Dioxide 22 (21-31) mmol/L BUN 68 H (6.0-23.0) mg/dL Creatinine 0.9 (0.6-1.5) mg/dL Est Cr Clr Drug Dosing 38.48 mL/min Estimated GFR (MDRD) > 60.0 ml/min Glucose 125 H (60-110) mg/dL Calcium 8.0 L (8.8-10.8) mg/dL Total Bilirubin 0.3 (0.1-1.5) mg/dL AST 28 (5-40) IU/L ALT 17 (8-54) IU/L Alkaline Phosphatase 89 (40-150) Troponin I < 0.10 (0.0-0.29) NG/ML Total Protein 7.3 (6.0-8.0) g/dL Albumin 2.7 L (3.4-4.8) g/dL Globulin 4.6 H (2.0-3.5) g/dL Albumin/Globulin Ratio 0.6 L (1.3-2.8) Lipase 38 (7-80) U/L Urine Color Urine Appearance Urine pH (5.0-8.0) Ur Specific [place] (1.001-1.035) Urine Protein (NEGATIVE) mg/dL Urine Glucose (UA) (NEGATIVE) mg/dL Urine Ketones (NEGATIVE) mg/dL Urine Occult Blood (NEGATIVE) Urine Nitrite (NEGATIVE) Urine Bilirubin (NEGATIVE) Urine Urobilinogen (<2.0) EU/dL Ur Leukocyte Esterase (NEGATIVE) Urine RBC (0-2/HPF) Urine WBC (0-5/HPF) Ur Epithelial Cells (NONE-FEW) Urine Bacteria (NEGATIVE) Blood Type O POSITIVE Antibody Screen NEGATIVE 05/04/17 Range/Units 09:08 WBC (4.0-11.0) K/uL RBC (4.30-5.90) M/uL Hgb (12.0-16.0) g/dL Hct (36.0-46.0) % MCV (80.0-98.0) fL MCH (27.0-32.0) pg MCHC (31.0-37.0) g/dL RDW Std Deviation (28.0-62.0) fl RDW Coeff of [place] (11.0-15.0) % Plt Count (150-400) K/uL MPV (7.40-12.00) fL Neut % (Auto) (48.0-80.0) % Lymph % (Auto) (16.0-40.0) % [place] % (Auto) (0.0-15.0) % Eos % (Auto) (0.0-7.0) % Baso % (Auto) (0.0-1.5) % Neut # (Auto) (1.4-5.7) K/uL Lymph # (Auto) (0.6-2.4) K/uL [place] # (Auto) (0.0-0.8) K/uL Eos # (Auto) (0.0-0.7) K/uL Baso # (Auto) (0.0-0.1) K/uL Nucleated RBC % /100WBC Nucleated RBCs # K/uL Sodium (136-146) mmol/L Potassium (3.5-5.1) mmol/L Chloride (98-110) mmol/L Carbon Dioxide (21-31) mmol/L BUN (6.0-23.0) mg/dL Creatinine (0.6-1.5) mg/dL Est Cr Clr Drug Dosing mL/min Estimated GFR (MDRD) ml/min Glucose (60-110) mg/dL Calcium (8.8-10.8) mg/dL Total Bilirubin (0.1-1.5) mg/dL AST (5-40) IU/L ALT (8-54) IU/L Alkaline Phosphatase (40-150) Troponin I (0.0-0.29) NG/ML Total Protein (6.0-8.0) g/dL Albumin (3.4-4.8) g/dL Globulin (2.0-3.5) g/dL Albumin/Globulin Ratio (1.3-2.8) Lipase (7-80) U/L Urine Color YELLOW Urine Appearance CLEAR Urine pH 6.0 (5.0-8.0) Ur Specific [place] 1.010 (1.001-1.035) Urine Protein NEGATIVE (NEGATIVE) mg/dL Urine Glucose (UA) NEGATIVE (NEGATIVE) mg/dL Urine Ketones NEGATIVE (NEGATIVE) mg/dL Urine Occult Blood MODERATE (NEGATIVE) Urine Nitrite NEGATIVE (NEGATIVE) Urine Bilirubin NEGATIVE (NEGATIVE) Urine Urobilinogen 0.2 (<2.0) EU/dL Ur Leukocyte Esterase NEGATIVE (NEGATIVE) Urine RBC 0-1 (0-2/HPF) Urine WBC 0-1 (0-5/HPF) Ur Epithelial Cells RARE (NONE-FEW) Urine Bacteria RARE (NEGATIVE) Blood Type Antibody Screen Meds: Medications Generic Name Dose Route Start Last Admin Trade Name Freq PRN Reason Stop Dose Admin Sodium Chloride 10 ml 05/04/17 07:21 Saline Flush FLUSH ASDIRECTED PRN Keep Vein Open Sodium Chloride 2.5 ml 05/04/17 07:21 Saline Flush FLUSH ASDIRECTED PRN Keep Vein Open Discontinued Medications Generic Name Dose Route Start Last Admin Trade Name Freq PRN Reason Stop Dose Admin Sodium Chloride 1,000 mls @ 999 mls/hr 05/04/17 07:21 05/04/17 07:50 Normal Saline IV 05/04/17 08:21 999 mls/hr .Bolus ONE Administration Iopamidol 110 ml 05/04/17 09:07 05/04/17 09:24 Isovue Multipack-370 (76%) IVPUSH 05/04/17 09:08 70 ml ONETIME STA Administration Ketorolac Tromethamine 15 mg 05/04/17 08:39 05/04/17 08:44 Toradol IVPUSH 05/04/17 08:40 15 mg ONETIME ONE Administration Departure - Departure Time of Disposition: 10:42 Disposition: Admitted As Inpatient 68 Condition: Fair Clinical Impression: Generalized weakness GI bleed Qualifiers: GI bleed type/associated pathology: unspecified gastrointestinal hemorrhage type Qualified Code(s): K92.2 - Gastrointestinal hemorrhage, unspecified Anemia Qualifiers: Anemia type: unspecified type Qualified Code(s): D64.9 - Anemia, unspecified - Discharge Information - My Orders Last 24 Hours: My Active Orders 05/04/17 07:21 EKG Documentation Completion [RC] STAT Sodium Chloride 0.9% [Saline Flush] 10 ml FLUSH ASDIRECTED PRN Sodium Chloride 0.9% [Saline Flush] 2.5 ml FLUSH ASDIRECTED PRN Saline Lock Insert [OM.PC] Stat - Assessment/Plan Last 24 Hours: My Active Orders 05/04/17 07:21 EKG Documentation Completion [RC] STAT Sodium Chloride 0.9% [Saline Flush] 10 ml FLUSH ASDIRECTED PRN Sodium Chloride 0.9% [Saline Flush] 2.5 ml FLUSH ASDIRECTED PRN Saline Lock Insert [OM.PC] Stat
[2017-05-04] MEDS ORDERED: Iopamidol 755 MG/ML 500 ML Multipack Bottle IVPUSH STA (09:07)
--- NOTE | 2017-05-04 10:04 | CT ---
EXAMINATION: CTA abdomen and pelvis HISTORY: Bleeding COMPARISON: None TECHNIQUE: Axial CT images obtained through the abdomen and pelvis before and following the administr ation of 70 mL of Isovue-370 in the left arm. Coronal and sagittal reconstructions obtained. FINDINGS: The lung bases are clear, no pleural effusion. The liver, spleen, and adrenal glands appear grossly unremarkable. There is a mild prominence of the common bile duct and pancreatic duct. The ga llbladder garcia appear mildly thickened however the gallbladder is decompressed. No bulky retroperito mehdi lymphadenopathy or abdominal ascites. The kidneys enhance and function symmetrically without evidence of obstructive uropathy. There is a c yst within the lower pole of the right kidney. The large and small bowel are normal in caliber without evidence of obstruction. No focal pericolonic inflammation or stranding. There is a 3.3 cm left ovarian cyst. Mild atheromatous change noted withi n the aorta and proximal branches without significant stenosis. No CT evidence of a gastrointestinal bleed. Mild degenerative changes noted within the lumbar spine. There is a mild compression deformity noted at T12. IMPRESSION: 1. No acute findings within the abdomen or pelvis. 2. Mild prominence of the common bile duct and pancreatic duct. 3. There is a 3.3 cm simple appearing left ovarian cyst.
[2017-05-04] MEDS ORDERED: Acetaminophen 325 MG Tab PO PRN (10:44)
[2017-05-04] MEDS ORDERED: Sodium Chloride 0.9% 1,000 ML IV SCH (10:45)
[2017-05-04] MEDS ORDERED: Ondansetron 4 MG/2 ML SDV IVPUSH PRN (10:45)
--- NOTE | 2017-05-04 11:03 | PCM.HP ---
H&P History of Present Illness - General Date of Service: 05/04/17 Admit Problem/Dx: Admission Diagnosis/Problem Admission Diagnosis/Problem GI bleed Source of Information: Patient, Other (Daughter) History Limitations: Reports: No Limitations - History of Present Illness Initial Comments - Free Text/Narative: 76-year-old female with past medical history of hypertension and atrial fibrillation with a pacemaker placed in 2012 that is being admitted with a possible GI bleed. Patient presented to the ER after experiencing right-sided abdominal pain at 5 AM this morning associated with weakness, lightheadedness and dizziness. Patient notes that she did experience an episode of a black tarry stool with no terrell blood yesterday. Patient states that she was started on Plavix and aspirin recently as she has an upcoming biopsy for a nodule under her right ear. Patient has no prior history of GI bleed or peptic ulcer disease. Patient denies any fevers, nausea, vomiting or diarrhea. Her appetite is been normal. Patient has never had a colonoscopy or EGD done. Patient denies any hematuria. She currently denies any abdominal pain. She also denies any chest pain, palpitations, shortness of breath, wheezing, cough, other areas of bleeding. ER course: Patient received a normal saline bolus as well as a one-time Toradol IM injection in the ER. CBC shows a normal white blood cell count and hemoglobin of 8.3. Looking at her prior admission at the beginning of April of this year her hemoglobin was 10.4. CMP shows normal liver function tests but an elevated potassium at 5.5 and a BUN of 68. Lipase was negative. Urinalysis was negative. CT of the abdomen/pelvis shows no acute findings and mild prominence of the common bile duct and pancreatic duct. No signs of diverticulitis or diverticulosis. Patient still has her gallbladder and appendix. Middle Abdominal Pain Score (Numeric/FACES): 5 - Related Data Allergies/Adverse Reactions: Allergies Allergy/AdvReac Type Severity Reaction Status Date / Time No Known Allergies Allergy Verified 04/13/17 00:04 Home Medications: Home Meds Aspirin [Halfprin] 81 mg PO BRK 06/10/16 [History] Bisoprolol [Zebeta] 5 mg PO DAILY 06/10/16 [History] Clopidogrel [Plavix] 75 mg PO DAILY 06/10/16 [History] Losartan [Cozaar] 25 mg PO DAILY 06/10/16 [History] atorvaSTATin [Lipitor] 10 mg PO BEDTIME 06/10/16 [History] Acetaminophen [Tylenol] 650 mg PO Q6H PRN tablet 04/13/17 [Rx] Past Medical History HEENT History: Reports: Glaucoma Cardiovascular History: Reports: Arrhythmia, Hypertension, Pacemaker Other Cardiovascular History: with pacemaker Respiratory History: Reports: SOB Gastrointestinal History: Reports: Other (See Below) (poor appetite). 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: Musculoskeletal History: Reports: Arthritis Psychiatric History: Reports: None Endocrine/Metabolic History: Reports: Osteoporosis Hematologic History: Reports: Anemia - Infectious Disease History Infectious Disease History: Reports: TB - Past Surgical History Female Surgical History: Reports: Section Social & Family History - Family History Family Medical History: Noncontributory - Tobacco Use Smoking Status *Q: Never Smoker Second Hand Smoke Exposure: No - Caffeine Use Caffeine Use: Reports: None Other Caffeine Use: daughter states occasional soda drinks - Recreational Drug Use Recreational Drug Use: No - Living Situation & Occupation Living situation: Reports: with Family Occupation: Retired H&P Review of Systems - Review of Systems: Review Of Systems: See Below General: Reports: Weakness HEENT: Reports: No Symptoms Pulmonary: Reports: No Symptoms Cardiovascular: Reports: No Symptoms Gastrointestinal: Reports: Abdominal Pain (Right-sided abdominal pain), Black Stool. Denies: Constipation, Diarrhea, Decreased Appetite, Nausea, Vomiting Genitourinary: Reports: No Symptoms Musculoskeletal: Reports: No Symptoms Skin: Reports: No Symptoms Psychiatric: Reports: No Symptoms Neurological: Reports: No Symptoms Hematologic/Lymphatic: Reports: No Symptoms Immunologic: Reports: No Symptoms Exam - Exam Exam: See Below - Vital Signs Vital Signs: Last Vital Signs Temp 97.7 F 05/04/17 10:10 Pulse 74 05/04/17 10:10 Resp 16 05/04/17 10:10 BP 114/61 05/04/17 10:10 Pulse Ox 98 05/04/17 10:10 Weight: 92 lb 9.506 oz - Exam General: Alert, Oriented, Cooperative HEENT: Conjunctiva Clear, Hearing Intact, Mucosa Moist & [place], Nares Patent, Normal Nasal Septum Neck: Supple, Trachea Midline, 2 Lungs: Clear to Auscultation, Normal Respiratory Effort Cardiovascular: Regular Rate, Regular Rhythm GI/Abdominal Exam: Normal Bowel Sounds, Soft, Non-Tender, No Organomegaly, No Distention, No Abnormal Bruit, No Mass, Pelvis Stable (Female) Exam: Normal Speculum Exam Extremities: Normal Inspection, Normal Range of Motion, Non-Tender, No Pedal Edema, Normal Capillary Refill Peripheral Pulses: 2+: Radial (L), Radial (R), Posterior Tibial (L), Posterior Tibial (R) Skin: Warm, Dry, Intact Neuro Extensive - Mental Status: Alert, Oriented x3, Normal Mood/Affect, Normal Cognition Psychiatric: Alert, Normal Affect, Normal Mood - Patient Data Result Diagrams: 05/04/17 07:41 05/04/17 07:41 *Q Meaningful Use (ADM) - VTE *Q VTE Criteria *Q: - Stroke *Q Stroke Criteria *Q: - AMI *Q AMI Criteria *Q: - Problem List (1) GI bleed SNOMED Code(s): 31118592 ICD Code: K92.2 - GASTROINTESTINAL HEMORRHAGE, UNSPECIFIED Status: Acute Current Visit: Yes Qualifiers: GI bleed type/associated pathology: unspecified gastrointestinal hemorrhage type Qualified Code(s): K92.2 - Gastrointestinal hemorrhage, unspecified Problem List Initiated/Reviewed/Updated: Yes Orders Last 24hrs: Active Orders 24 hr Category Date Time Status Antiembolic Devices [RC] PER UNIT ROUTINE Care 05/04/17 10:47 Ordered Cardiac Monitoring [RC] . DIRECTED Care 05/04/17 10:45 Ordered Cardiac Monitoring [RC] CONTINUOUS Care 05/04/17 10:45 Inactive Height and Weight [RC] DAILY Care 05/04/17 10:45 Ordered Intake and Output [RC] QSHIFT Care 05/04/17 10:45 Ordered Notify Provider Consults [RC] ASDIRECTED Care 05/04/17 10:49 Ordered Notify Provider Vital Signs [RC] ASDIRECTED Care 05/04/17 10:46 Ordered Oxygen Therapy [RC] PRN Care 05/04/17 10:45 Ordered Pulse Oximetry [RC] PRN Care 05/04/17 10:45 Ordered Telemetry Monitoring [Cardiac Monitoring] [RC] . Care 05/04/17 10:50 Ordered DIRECTED Up With Assistance [RC] ASDIRECTED Care 05/04/17 10:45 Ordered VTE/DVT Education [RC] PER UNIT ROUTINE Care 05/04/17 10:45 Ordered Vital Signs [RC] Q4H Care 05/04/17 10:45 Ordered Consult to Physician [CONS] Routine Cons 05/04/17 10:45 Ordered Nothing per Oral Now Diet [DIET] Diet 05/04/17 Lunch Ordered CBC WITH AUTO DIFF [HEME] AM Lab 05/05/17 05:11 Ordered CBC WITH AUTO DIFF [HEME] AM Lab 05/06/17 05:11 Ordered COMPREHENSIVE METABOLIC PN,CMP [CHEM] AM Lab 05/05/17 05:11 Ordered COMPREHENSIVE METABOLIC PN,CMP [CHEM] AM Lab 05/06/17 05:11 Ordered INR,PT,PROTHROMBIN TIME [COAG] Routine Lab 05/04/17 10:45 Ordered MAGNESIUM [CHEM] Routine Lab 05/04/17 10:40 Ordered OCCULT BLOOD DIAGNOSTIC [OP] Routine Lab 05/04/17 10:40 Uncollected PHOSPHORUS [CHEM] Routine Lab 05/04/17 10:40 Ordered Acetaminophen [Tylenol] Med 05/04/17 10:44 Ordered 650 mg PO Q6H PRN Bisoprolol Med 05/05/17 09:00 Ordered 5 mg PO DAILY Losartan Med 05/05/17 09:00 Ordered 25 mg PO DAILY Ondansetron [Zofran] Med 05/04/17 10:45 Ordered 4 mg IVPUSH Q4H PRN Pantoprazole [ProTONIX IV] 40 mg Med 05/04/17 11:00 Ordered Sodium Chloride 0.9% [Normal Saline] 10 ml IVPUSH Q12HR Sodium Chloride 0.9% @ 125 MLS/HR (1,000ml) Med 05/04/17 10:45 Ordered Sodium Chloride 0.9% [Normal Saline] 1,000 ml IV ASDIRECTED atorvaSTATin [Lipitor] Med 05/04/17 21:00 Ordered 10 mg PO BEDTIME Sequential Compression Device [OM.PC] Per Unit Routine Oth 05/04/17 10:46 Ordered Resuscitation Status Routine Resus Stat 05/04/17 10:45 Ordered Medication Orders Acetaminophen (Tylenol) 650 mg PO Q6H PRN PRN Reason: Pain Atorvastatin Calcium (Lipitor) 10 mg PO BEDTIME MARIA TERESA Pantoprazole Sodium 40 mg/ (Sodium Chloride) 10 mls @ 300 mls/hr IVPUSH Q12HR MARIA TERESA Sodium Chloride (Normal Saline) 1,000 mls @ 125 mls/hr IV ASDIRECTED MARIA TERESA Losartan Potassium (Cozaar) 25 mg PO DAILY MARIA TERESA Ondansetron HCl (Zofran) 4 mg IVPUSH Q4H PRN PRN Reason: Nausea Bisoprolol 5 Mg 1 each PO DAILY MARIA TERESA Sodium Chloride (Saline Flush) 10 ml FLUSH ASDIRECTED PRN PRN Reason: Keep Vein Open Sodium Chloride (Saline Flush) 2.5 ml FLUSH ASDIRECTED PRN PRN Reason: Keep Vein Open Assessment/Plan Comment:: 76-year-old female with possible GI bleed. #1. Upper GI bleed: -Patient will be started on Protonix IV and normal saline at 125 mL/hour. -Patient will be made nothing by mouth until seen by Dr. Clark, general surgeon , who has been consulted. -Plavix and aspirin will be held. -H. pylori is pending. -Hemoccult is pending. -Trend H&H every 6 hours. -Patient does have elevated potassium. This could be secondary to hemolysis. Repeat CMP in the morning. #2. Pacemaker secondary to history of atrial fibrillation: -Phosphorus and magnesium levels are pending. -Patient will be continued on home medications. #3. Elevated BUN: -Patient will be started on normal saline at 125 mL/hour. Repeat CMP in the morning. #4. Mild prominence of common bile duct and pancreatic duct: -General surgery has been consult. Will follow their recommendations. DVT prophylaxis: SCDs. Disposition: 1-2 days pending improvement.
[2017-05-04] MEDS: Pantoprazole 40 MG in Sodium Chloride 0.9% 10 ML IVPUSH SCH ×2 (12:01→20:42)
[2017-05-04] MEDS ORDERED: Pneumococcal Polyvalent-23 Vaccine 0.5 ML SDV IM ONE (12:47)
--- NOTE | 2017-05-04 14:31 | PCM.SN ---
- Free Text/Narrative Note: Hgb dropped to 7.8 since admission, patient continues to feel weak and fatigued. VS are stable. Will transfuse 2 units PRBCs now due to weakness and fatigue likely secondary to anemia.
[2017-05-04] MEDS: Sodium Chloride 0.9% 1,000 ML IV SCH (15:08)
--- NOTE | 2017-05-04 18:24 | PCM.CONS ---
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 Her history is obtained between her and her daughter. She is mainly Citizen Of [place] speaking but does speak some [place]ish. She has a history of atrial fibrillation and has a pacemaker in place. She was on aspirin and Plavix but stopped Plavix on Monday due to a scheduled biopsy to be performed next week. She started to have diarrhea on Monday. Her daughter states that on Monday this is associated with nausea and vomiting. She wasn't eating and did not vomit up any material. Her daughter brought her into the hospital for further evaluation since her mother was not getting better. She was admitted recently with chest pain but there was no evidence of a cardiac etiology. She denies taking ibuprofen on a regular basis. She complains of bandlike pain across her upper abdomen. It is difficult to obtain a history from her due to the language barrier even with an elementary secretary. She feels this is due to taking too many vitamins and may be due to something she ate. Her hemoglobin on her previous admission was 10 but today was in the low eights and 7.8 on recheck. Her blood pressure has remained stable since admission. She is receiving 2 units of blood. I reviewed her clinical chart and she was found to have an indeterminate 3.2 x 1.2 complex cystic versus solid nodule on the right side. This is located below the right auricle. This was to be biopsied by Dr. Lezama. She has a history of bilateral hip and knee pain as well as multiple compression fractures of the thoracic and lumbar spine due to osteoporosis. Apparently this was giving her lots of pain. She was supposed to have a Hemoccult test performed due to her anemia. She recently complained of decreased appetite and weight loss but denied any changes in her bowel habits. Onset of Symptoms: Reports: Today Middle Abdominal Pain Score (Numeric/FACES): 5 Lower Back Pain Score (Numeric/FACES): 3 - Related Data Allergies/Adverse Reactions: Allergies Allergy/AdvReac Type Severity Reaction Status Date / Time No Known Allergies Allergy Verified 04/13/17 00:04 Home Medications: Home Meds Aspirin [Halfprin] 81 mg PO BRK 06/10/16 [History] Bisoprolol [Zebeta] 5 mg PO DAILY 06/10/16 [History] Clopidogrel [Plavix] 75 mg PO DAILY 06/10/16 [History] Losartan [Cozaar] 25 mg PO DAILY 06/10/16 [History] atorvaSTATin [Lipitor] 10 mg PO BEDTIME 06/10/16 [History] Past Medical History HEENT History: Reports: Glaucoma Cardiovascular History: Reports: Arrhythmia, Hypertension, Pacemaker Other Cardiovascular History: with pacemaker Respiratory History: Reports: SOB Other Respiratory History: TB 1985 Gastrointestinal History: Reports: Other (See Below) (poor appetite). 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: Musculoskeletal History: Reports: Arthritis Psychiatric History: Reports: None Endocrine/Metabolic History: Reports: Osteoporosis Hematologic History: Reports: Anemia - Infectious Disease History Infectious Disease History: Reports: TB - Past Surgical History Female Surgical History: Reports: Section Social & Family History - Family History Family Medical History: Noncontributory HEENT: Reports: Cataract Cardiac: Reports: Hypertension - Tobacco Use Smoking Status *Q: Never Smoker Second Hand Smoke Exposure: No - Caffeine Use Caffeine Use: Reports: None Other Caffeine Use: daughter states occasional soda drinks - Recreational Drug Use Recreational Drug Use: No - Living Situation & Occupation Living situation: Reports: with Family Occupation: Retired H&P Review of Systems - Review of Systems: Review Of Systems: ROS reveals no pertinent complaints other than HPI. Exam - Exam Exam: See Below - Vital Signs Vital Signs: Last Vital Signs Temp 36.6 C 05/04/17 16:36 Pulse 73 05/04/17 16:36 Resp 16 05/04/17 16:36 BP 112/60 05/04/17 16:36 Pulse Ox 97 05/04/17 16:36 Weight: 42 kg - Exam General: Alert, Oriented HEENT: Conjunctiva Clear, EOMI, Mucosa Moist & [place], Posterior Pharynx Clear, Pupils Reactive Lungs: Clear to Auscultation, Normal Respiratory Effort Cardiovascular: Regular Rate, Regular Rhythm GI/Abdominal Exam: Soft, Non-Tender, No Organomegaly, No Distention, No Mass (Female) Exam: Normal External Exam Rectal (Female) Exam: Normal Rectal Tone, Black Stool, Heme + Stool. No: Mass Skin: Warm, Dry, Intact Neuro Extensive - Mental Status: Alert, Oriented x3, Normal Mood/Affect - Patient Data Lab Results Last 24 hrs: Laboratory Results - last 24 hr 05/04/17 05/04/17 Range/Units 11:07 13:29 Hgb 7.8 L (12.0-16.0) g/dL Hct 24.7 L (36.0-46.0) % INR 1.04 (0.86-1.11) Result Diagrams: 05/04/17 13:29 05/04/17 07:41 Hermilo Results Last 24 hrs: Microbiology 05/04/17 14:40 Stool Occult Blood (HERMILO) - Final Stool / Feces - Stool, Aspirate POSITIVE OCCULT BLOOD Consult PN Assessment/Plan Procedures: Procedures ASSAY OF AMYLASE (04/13/17) ASSAY OF CK (CPK) (04/13/17) ASSAY OF FERRITIN (04/13/17) ASSAY OF FOLIC ACID SERUM (04/13/17) ASSAY OF LIPASE (04/13/17) ASSAY OF MAGNESIUM (04/13/17) ASSAY OF NATRIURETIC PEPTIDE (04/13/17) ASSAY OF TROPONIN QUANT (04/13/17) AUTOMATED RETICULOCYTE COUNT (04/13/17) CHEST X-RAY 1 VIEW FRONTAL (04/13/17) COMPLETE CBC W/AUTO DIFF WBC (04/13/17) COMPREHEN METABOLIC PANEL (04/13/17) CREATINE MB FRACTION (04/13/17) CT HEAD/BRAIN W/O DYE (06/10/16) CT THORAX W/O DYE (04/13/17) CYTOPATH FL NONGYN SMEARS (04/13/17) ELECTROCARDIOGRAM TRACING (04/13/17) EMERGENCY DEPT VISIT (04/13/17) EMERGENCY DEPT VISIT (06/10/16) EXTRACRANIAL BILAT STUDY (07/14/16) HYDRATE IV INFUSION ADD-ON (04/13/17) IRON BINDING TEST (04/13/17) LIPID PANEL (03/27/17) METABOLIC PANEL TOTAL CA (07/08/16) PROTHROMBIN TIME (03/09/16) RHEUMATOID FACTOR TEST QUAL (06/10/16) ROUTINE VENIPUNCTURE (04/13/17) THER/PROPH/DIAG INJ IV PUSH (04/13/17) URINALYSIS AUTO W/SCOPE (04/13/17) US EXAM OF HEAD AND NECK (04/03/17) VITAMIN B-12 (04/13/17) X-RAY EXAM HIPS BI 2 VIEWS (09/27/16) X-RAY EXAM KNEE 4 OR MORE (06/20/16) X-RAY EXAM L-S SPINE 2/3 VWS (04/13/17) X-RAY EXAM OF KNEE 3 (03/09/16) X-RAY EXAM THORAC SPINE 2VWS (04/13/17) (1) Anemia SNOMED Code(s): 010351258 Code(s): D64.9 - ANEMIA, UNSPECIFIED Current Visit: Yes Qualifiers: Anemia type: unspecified type Qualified Code(s): D64.9 - Anemia, unspecified (2) GI bleed SNOMED Code(s): 57727431 Code(s): K92.2 - GASTROINTESTINAL HEMORRHAGE, UNSPECIFIED Current Visit: Yes Qualifiers: GI bleed type/associated pathology: unspecified gastrointestinal hemorrhage type Qualified Code(s): K92.2 - Gastrointestinal hemorrhage, unspecified Problem List Initiated/Reviewed/Updated: Yes Plan: She has an upper GI bleed. This is most likely due to a gastric or duodenal ulcer. Despite her chronic back pain she denies taking ibuprofen a regular basis. She could also have a proximal colonic lesion but with her upper abdominal pain this is less likely. I would continue to resuscitate her and keep her nothing by mouth overnight. I agree with IV Protonix twice a day. If her hemoglobin stays stable after transfusion and she stay stable overnight and consider as an outpatient to perform a diagnostic EGD and colonoscopy. If she continues to bleed I will add her on tomorrow for a diagnostic EGD.
[2017-05-04] MEDS ORDERED: atorvaSTATin 10 MG Tab PO SCH (21:00)
[2017-05-05 05:34] LABS: CHLORIDE,CL 112 mmol/L (98-110); SODIUM,NA 139 mmol/L (136-146)
--- NOTE | 2017-05-05 07:48 | PCM.CONSN ---
- General Info Date of Service: 05/05/17 Admission Dx/Problem (Free Text): Patient had no acute issues overnight. She recieved 2 units of blood and her hemoglobin came up appropriately. This morning it is stable. She has had no further bms. She denies nausea, vomiting, or abdominal pain. She is hungry and wanting to eat. Functional Status: Reports: Pain Controlled, Ambulating, Urinating - Review of Systems General: Reports: No Symptoms Pulmonary: Reports: No Symptoms Cardiovascular: Reports: No Symptoms Gastrointestinal: Reports: No Symptoms - Patient Data Vitals - Most Recent: Last Vital Signs Temp 36.6 C 05/05/17 04:00 Pulse 69 05/05/17 04:00 Resp 20 05/05/17 04:00 BP 140/68 05/05/17 04:00 Pulse Ox 94 L 05/05/17 04:00 Weight - Most Recent: 42 kg I&O - Last 24 Hours: Intake & Output 05/04/17 05/05/17 05/05/17 22:59 06:59 14:59 Intake Total 874 519 Output Total 500 900 Balance 374 -381 Lab Results Last 24 Hours: Laboratory Results - last 24 hr 05/04/17 05/04/17 05/05/17 Range/Units 11:07 13:29 01:00 WBC (4.0-11.0) K/uL RBC (4.30-5.90) M/uL Hgb 7.8 L 10.2 L (12.0-16.0) g/dL Hct 24.7 L 31.1 L (36.0-46.0) % MCV (80.0-98.0) fL MCH (27.0-32.0) pg MCHC (31.0-37.0) g/dL RDW Std Deviation (28.0-62.0) fl RDW Coeff of [place] (11.0-15.0) % Plt Count (150-400) K/uL MPV (7.40-12.00) fL Neut % (Auto) (48.0-80.0) % Lymph % (Auto) (16.0-40.0) % [place] % (Auto) (0.0-15.0) % Eos % (Auto) (0.0-7.0) % Baso % (Auto) (0.0-1.5) % Neut # (Auto) (1.4-5.7) K/uL Lymph # (Auto) (0.6-2.4) K/uL [place] # (Auto) (0.0-0.8) K/uL Eos # (Auto) (0.0-0.7) K/uL Baso # (Auto) (0.0-0.1) K/uL Nucleated RBC % /100WBC Nucleated RBCs # K/uL INR 1.04 (0.86-1.11) Sodium (136-146) mmol/L Potassium (3.5-5.1) mmol/L Chloride (98-110) mmol/L Carbon Dioxide (21-31) mmol/L BUN (6.0-23.0) mg/dL Creatinine (0.6-1.5) mg/dL Est Cr Clr Drug Dosing mL/min Estimated GFR (MDRD) ml/min Glucose (60-110) mg/dL Calcium (8.8-10.8) mg/dL Total Bilirubin (0.1-1.5) mg/dL AST (5-40) IU/L ALT (8-54) IU/L Alkaline Phosphatase (40-150) Total Protein (6.0-8.0) g/dL Albumin (3.4-4.8) g/dL Globulin (2.0-3.5) g/dL Albumin/Globulin Ratio (1.3-2.8) 05/05/17 05/05/17 Range/Units 04:44 04:44 WBC 3.65 L (4.0-11.0) K/uL RBC 3.58 L (4.30-5.90) M/uL Hgb 10.1 L (12.0-16.0) g/dL Hct 31.0 L (36.0-46.0) % MCV 86.6 (80.0-98.0) fL MCH 28.2 (27.0-32.0) pg MCHC 32.6 (31.0-37.0) g/dL RDW Std Deviation 49.7 (28.0-62.0) fl RDW Coeff of [place] 16 H (11.0-15.0) % Plt Count 254 (150-400) K/uL MPV 9.40 (7.40-12.00) fL Neut % (Auto) 46.9 L (48.0-80.0) % Lymph % (Auto) 34.5 (16.0-40.0) % [place] % (Auto) 13.2 (0.0-15.0) % Eos % (Auto) 4.9 (0.0-7.0) % Baso % (Auto) 0.5 (0.0-1.5) % Neut # (Auto) 1.7 (1.4-5.7) K/uL Lymph # (Auto) 1.3 (0.6-2.4) K/uL [place] # (Auto) 0.5 (0.0-0.8) K/uL Eos # (Auto) 0.2 (0.0-0.7) K/uL Baso # (Auto) 0.0 (0.0-0.1) K/uL Nucleated RBC % 0.0 /100WBC Nucleated RBCs # 0 K/uL INR (0.86-1.11) Sodium 139 (136-146) mmol/L Potassium 5.0 (3.5-5.1) mmol/L Chloride 112 H (98-110) mmol/L Carbon Dioxide 21 (21-31) mmol/L BUN 54 H (6.0-23.0) mg/dL Creatinine 0.8 (0.6-1.5) mg/dL Est Cr Clr Drug Dosing 40.91 mL/min Estimated GFR (MDRD) > 60.0 ml/min Glucose 77 (60-110) mg/dL Calcium 8.3 L (8.8-10.8) mg/dL Total Bilirubin 0.7 (0.1-1.5) mg/dL AST 25 (5-40) IU/L ALT 14 (8-54) IU/L Alkaline Phosphatase 75 (40-150) Total Protein 6.5 (6.0-8.0) g/dL Albumin 2.6 L (3.4-4.8) g/dL Globulin 3.9 H (2.0-3.5) g/dL Albumin/Globulin Ratio 0.7 L (1.3-2.8) Hermilo Results Last 24 Hours: Microbiology 05/04/17 14:40 Stool Occult Blood (HERMILO) - Final Stool / Feces - Stool, Aspirate POSITIVE OCCULT BLOOD Med Orders - Current: Current Medications Acetaminophen (Tylenol) 650 mg PO Q6H PRN PRN Reason: Pain Last Admin: 05/04/17 15:07 Dose: 650 mg Atorvastatin Calcium (Lipitor) 10 mg PO BEDTIME [facility] Last Admin: 05/04/17 20:51 Dose: 10 mg Pantoprazole Sodium 40 mg/ (Sodium Chloride) 10 mls @ 300 mls/hr IVPUSH Q12HR [facility] Last Admin: 05/04/17 20:42 Dose: 300 mls/hr Sodium Chloride (Normal Saline) 1,000 mls @ 50 mls/hr IV ASDIRECTED [facility] Last Admin: 05/04/17 15:08 Dose: 50 mls/hr Losartan Potassium (Cozaar) 25 mg PO DAILY [facility] Ondansetron HCl (Zofran) 4 mg IVPUSH Q4H PRN PRN Reason: Nausea Bisoprolol 5 Mg 1 each PO DAILY [facility] Sodium Chloride (Saline Flush) 10 ml FLUSH ASDIRECTED PRN PRN Reason: Keep Vein Open Sodium Chloride (Saline Flush) 2.5 ml FLUSH ASDIRECTED PRN PRN Reason: Keep Vein Open Discontinued Medications Sodium Chloride (Normal Saline) 1,000 mls @ 999 mls/hr IV .Bolus ONE Stop: 05/04/17 08:21 Last Admin: 05/04/17 07:50 Dose: 999 mls/hr Sodium Chloride (Normal Saline) 1,000 mls @ 125 mls/hr IV ASDIRECTED [facility] Last Admin: 05/04/17 11:43 Dose: 125 mls/hr Iopamidol (Isovue Multipack-370 (76%)) 110 ml IVPUSH ONETIME STA Stop: 05/04/17 09:08 Last Admin: 05/04/17 09:24 Dose: 70 ml Ketorolac Tromethamine (Toradol) 15 mg IVPUSH ONETIME ONE Stop: 05/04/17 08:40 Last Admin: 05/04/17 08:44 Dose: 15 mg Pneumococcal Polyvalent Vaccine (Pneumovax 23) 0.5 ml IM .ONCE ONE Stop: 05/04/17 12:48 - Exam General: Alert, Oriented Lungs: Normal Respiratory Effort Cardiovascular: Irregular Rhythm GI/Abdominal Exam: Soft, Non-Tender, No Distention Consult PN Assessment/Plan Procedures: Procedures ASSAY OF AMYLASE (04/13/17) ASSAY OF CK (CPK) (04/13/17) ASSAY OF FERRITIN (04/13/17) ASSAY OF FOLIC ACID SERUM (04/13/17) ASSAY OF LIPASE (04/13/17) ASSAY OF MAGNESIUM (04/13/17) ASSAY OF NATRIURETIC PEPTIDE (04/13/17) ASSAY OF TROPONIN QUANT (04/13/17) AUTOMATED RETICULOCYTE COUNT (04/13/17) CHEST X-RAY 1 VIEW FRONTAL (04/13/17) COMPLETE CBC W/AUTO DIFF WBC (04/13/17) COMPREHEN METABOLIC PANEL (04/13/17) CREATINE MB FRACTION (04/13/17) CT HEAD/BRAIN W/O DYE (06/10/16) CT THORAX W/O DYE (04/13/17) CYTOPATH FL NONGYN SMEARS (04/13/17) ELECTROCARDIOGRAM TRACING (04/13/17) EMERGENCY DEPT VISIT (04/13/17) EMERGENCY DEPT VISIT (06/10/16) EXTRACRANIAL BILAT STUDY (07/14/16) HYDRATE IV INFUSION ADD-ON (04/13/17) IRON BINDING TEST (04/13/17) LIPID PANEL (03/27/17) METABOLIC PANEL TOTAL CA (07/08/16) PROTHROMBIN TIME (03/09/16) RHEUMATOID FACTOR TEST QUAL (06/10/16) ROUTINE VENIPUNCTURE (04/13/17) THER/PROPH/DIAG INJ IV PUSH (04/13/17) URINALYSIS AUTO W/SCOPE (04/13/17) US EXAM OF HEAD AND NECK (04/03/17) VITAMIN B-12 (04/13/17) X-RAY EXAM HIPS BI 2 VIEWS (09/27/16) X-RAY EXAM KNEE 4 OR MORE (06/20/16) X-RAY EXAM L-S SPINE 2/3 VWS (04/13/17) X-RAY EXAM OF KNEE 3 (03/09/16) X-RAY EXAM THORAC SPINE 2VWS (04/13/17) (1) Anemia SNOMED Code(s): 328272809 Code(s): D64.9 - ANEMIA, UNSPECIFIED Current Visit: Yes Qualifiers: Anemia type: unspecified type Qualified Code(s): D64.9 - Anemia, unspecified (2) GI bleed SNOMED Code(s): 41380639 Code(s): K92.2 - GASTROINTESTINAL HEMORRHAGE, UNSPECIFIED Current Visit: Yes Qualifiers: GI bleed type/associated pathology: unspecified gastrointestinal hemorrhage type Qualified Code(s): K92.2 - Gastrointestinal hemorrhage, unspecified Problem List Initiated/Reviewed/Updated: Yes Plan: She has stopped bleeding. Her bleed was most likely from an upper GI source. I would advance her diet as tolerated. If her hemoglobin and BP remain stable she can go home. Recommend PPI therapy and sucralfate as an outpatient. She should avoid NSAIDs. I will see her in clinic in 1 week for follow up and to schedule her for a diagnostic EGD and colonoscopy. I will sign off. Please call if any questions, concerns, or she starts showing signs of bleeding again.
[2017-05-05] MEDS: Pantoprazole 40 MG in Sodium Chloride 0.9% 10 ML IVPUSH SCH (08:59)
[2017-05-05] MEDS ORDERED: Losartan 50 MG Tab PO SCH (09:00)
[2017-05-05] MEDS: Sodium Chloride 0.9% 1,000 ML IV SCH (10:34)
[2017-05-05 11:38] VITALS: BP 137/68
--- NOTE | 2017-05-05 12:52 | PCM.DCSUM1 ---
Discharge Summary - Hospital Course Brief History: 76-year-old female with past medical history of hypertension and atrial fibrillation with a pacemaker placed in 2012 that is being admitted with a possible GI bleed. Patient presented to the ER after experiencing right-sided abdominal pain at 5 AM this morning associated with weakness, lightheadedness and dizziness. Patient notes that she did experience an episode of a black tarry stool with no terrell blood yesterday. Patient states that she was started on Plavix and aspirin recently and has she has an upcoming biopsy for a nodule under her right ear on neck. Patient has no prior history of GI bleed or peptic ulcer disease. Patient denies any fevers, nausea, vomiting or diarrhea. Her appetite is been normal. Patient has never had a colonoscopy or EGD done. Patient denies any hematuria. She currently denies any abdominal pain. She also denies any chest pain, palpitations, shortness of breath, wheezing, cough, other areas of bleeding. ER course: Patient received a normal saline bolus as well as a one-time Toradol IM injection in the ER. CBC shows a normal white blood cell count and hemoglobin of 8.3. Looking at her prior admission at the beginning of April of this year her hemoglobin was 10.4. CMP shows normal liver function tests but an elevated potassium at 5.5 and a BUN of 68. Lipase was negative. Urinalysis was negative. CT of the abdomen/pelvis shows no acute findings and mild prominence of the common bile duct and pancreatic duct. No signs of diverticulitis or diverticulosis. Patient still has her gallbladder and appendix. - Discharge Data Discharge Date: 05/05/17 Discharge Disposition: Home, Self-Care 01 Condition: Good - Patient Summary/Data Consults: Consultations 05/04/17 10:45 Consult to Physician [CONS] Routine - Patient Instructions Diet: Heart Healthy Diet Activity: As Tolerated Showering/Bathing: November Shower Notify Provider of: Fever, Increased Pain, Swelling and Redness, Drainage, Nausea and/or Vomiting Other/Special Instructions: Do not take any NSAIDs, such as Aspirin, Aleve, Ibuprofen, Advil or Motrin. - Discharge Plan Prescriptions/Med Rec: Pantoprazole Sodium [Protonix] 40 mg PO BID #60 tablet. Sucralfate [Carafate] 1 gm PO QIDACANDBED #120 tablet Home Medications: Home Meds Bisoprolol [Zebeta] 5 mg PO DAILY 06/10/16 [History] Losartan [Cozaar] 25 mg PO DAILY 06/10/16 [History] atorvaSTATin [Lipitor] 10 mg PO BEDTIME 06/10/16 [History] Acetaminophen [Tylenol] 650 mg PO Q6H PRN tablet 05/05/17 [Rx] Pantoprazole Sodium [Protonix] 40 mg PO BID #60 tablet. 05/05/17 [Rx] Sucralfate [Carafate] 1 gm PO QIDACANDBED #120 tablet 05/05/17 [Rx] Patient Handouts: Gastrointestinal Bleeding, [id number] Referrals: Brooks Nesbitt MD [Physician] - 05/15/17 1:30 pm Toshia Clark MD [Physician] - 05/12/17 10:30 am - Discharge Summary/Plan Comment DC Time >30 min.: No Discharge Summary/Plan Comment: Discharge Diagnoses: Gi bleed Gastritis Pacemaker Hx afib R neck nodule Dianna was admitted and treated with 2 units PRBCs due to symptomatic anemia secondary to GI bleeding. She did not have any further black or bloody stools during admission and Hgb remained stable at 10.1 today. SHe is tolerating a regular diet and is very eager for discharge today. No abdominal pain or chest pain. Daughter at bedside agrees with discharge. She will be sent home on Protonix BID and Carafate with each meal and at bedtime. She is to follow up with Dr. Clark as outpatient for EGD/colonoscopy. She is to return to ED or clinic if concerns should arise. She was encouraged not to use and NSAIDs and to hold her Plavis and ASA until further notice. - General Info Date of Service: 05/05/17 Admission Dx/Problem (Free Text: GI bleeding Subjective Update: No concerns overnight, asking when she is able to eat and be discharged home. Functional Status: Reports: Pain Controlled, Tolerating Diet, Ambulating, Urinating - Review of Systems General: Reports: No Symptoms. Denies: Fever Pulmonary: Reports: No Symptoms. Denies: Shortness of Breath Cardiovascular: Reports: No Symptoms. Denies: Chest Pain, Palpitations, Edema Gastrointestinal: Reports: No Symptoms. Denies: Abdominal Pain, Melena, Nausea , Vomiting Musculoskeletal: Reports: No Symptoms Neurological: Reports: No Symptoms Psychiatric: Reports: No Symptoms - Patient Data Vitals - Most Recent: Last Vital Signs Temp 98.9 F 05/05/17 11:36 Pulse 67 05/05/17 11:36 Resp 24 H 05/05/17 11:36 BP 137/68 05/05/17 11:36 Pulse Ox 96 05/05/17 11:36 Weight - Most Recent: 42 kg I&O - Last 24 hours: Intake & Output 05/04/17 05/05/17 05/05/17 22:59 06:59 14:59 Intake Total 874 519 130 Output Total 500 900 Balance 374 -381 130 Lab Results - Last 24 hrs: Laboratory Results - last 24 hr 05/04/17 05/05/17 05/05/17 Range/Units 13:29 01:00 04:44 WBC 3.65 L (4.0-11.0) K/uL RBC 3.58 L (4.30-5.90) M/uL Hgb 7.8 L 10.2 L 10.1 L (12.0-16.0) g/dL Hct 24.7 L 31.1 L 31.0 L (36.0-46.0) % MCV 86.6 (80.0-98.0) fL MCH 28.2 (27.0-32.0) pg MCHC 32.6 (31.0-37.0) g/dL RDW Std Deviation 49.7 (28.0-62.0) fl RDW Coeff of [place] 16 H (11.0-15.0) % Plt Count 254 (150-400) K/uL MPV 9.40 (7.40-12.00) fL Neut % (Auto) 46.9 L (48.0-80.0) % Lymph % (Auto) 34.5 (16.0-40.0) % [place] % (Auto) 13.2 (0.0-15.0) % Eos % (Auto) 4.9 (0.0-7.0) % Baso % (Auto) 0.5 (0.0-1.5) % Neut # (Auto) 1.7 (1.4-5.7) K/uL Lymph # (Auto) 1.3 (0.6-2.4) K/uL [place] # (Auto) 0.5 (0.0-0.8) K/uL Eos # (Auto) 0.2 (0.0-0.7) K/uL Baso # (Auto) 0.0 (0.0-0.1) K/uL Nucleated RBC % 0.0 /100WBC Nucleated RBCs # 0 K/uL Sodium (136-146) mmol/L Potassium (3.5-5.1) mmol/L Chloride (98-110) mmol/L Carbon Dioxide (21-31) mmol/L BUN (6.0-23.0) mg/dL Creatinine (0.6-1.5) mg/dL Est Cr Clr Drug Dosing mL/min Estimated GFR (MDRD) ml/min Glucose (60-110) mg/dL Calcium (8.8-10.8) mg/dL Total Bilirubin (0.1-1.5) mg/dL AST (5-40) IU/L ALT (8-54) IU/L Alkaline Phosphatase (40-150) Total Protein (6.0-8.0) g/dL Albumin (3.4-4.8) g/dL Globulin (2.0-3.5) g/dL Albumin/Globulin Ratio (1.3-2.8) 05/05/17 Range/Units 04:44 WBC (4.0-11.0) K/uL RBC (4.30-5.90) M/uL Hgb (12.0-16.0) g/dL Hct (36.0-46.0) % MCV (80.0-98.0) fL MCH (27.0-32.0) pg MCHC (31.0-37.0) g/dL RDW Std Deviation (28.0-62.0) fl RDW Coeff of [place] (11.0-15.0) % Plt Count (150-400) K/uL MPV (7.40-12.00) fL Neut % (Auto) (48.0-80.0) % Lymph % (Auto) (16.0-40.0) % [place] % (Auto) (0.0-15.0) % Eos % (Auto) (0.0-7.0) % Baso % (Auto) (0.0-1.5) % Neut # (Auto) (1.4-5.7) K/uL Lymph # (Auto) (0.6-2.4) K/uL [place] # (Auto) (0.0-0.8) K/uL Eos # (Auto) (0.0-0.7) K/uL Baso # (Auto) (0.0-0.1) K/uL Nucleated RBC % /100WBC Nucleated RBCs # K/uL Sodium 139 (136-146) mmol/L Potassium 5.0 (3.5-5.1) mmol/L Chloride 112 H (98-110) mmol/L Carbon Dioxide 21 (21-31) mmol/L BUN 54 H (6.0-23.0) mg/dL Creatinine 0.8 (0.6-1.5) mg/dL Est Cr Clr Drug Dosing 40.91 mL/min Estimated GFR (MDRD) > 60.0 ml/min Glucose 77 (60-110) mg/dL Calcium 8.3 L (8.8-10.8) mg/dL Total Bilirubin 0.7 (0.1-1.5) mg/dL AST 25 (5-40) IU/L ALT 14 (8-54) IU/L Alkaline Phosphatase 75 (40-150) Total Protein 6.5 (6.0-8.0) g/dL Albumin 2.6 L (3.4-4.8) g/dL Globulin 3.9 H (2.0-3.5) g/dL Albumin/Globulin Ratio 0.7 L (1.3-2.8) SUSANNA Results - Last 24 hrs: Microbiology 05/04/17 14:40 Stool Occult Blood (SUSANNA) - Final Stool / Feces - Stool, Aspirate POSITIVE OCCULT BLOOD Med Orders - Current: Current Medications Acetaminophen (Tylenol) 650 mg PO Q6H PRN PRN Reason: Pain Last Admin: 05/04/17 15:07 Dose: 650 mg Atorvastatin Calcium (Lipitor) 10 mg PO BEDTIME MARIA TERESA Last Admin: 05/04/17 20:51 Dose: 10 mg Pantoprazole Sodium 40 mg/ (Sodium Chloride) 10 mls @ 300 mls/hr IVPUSH Q12HR MARIA TERESA Last Admin: 05/05/17 08:59 Dose: 300 mls/hr Sodium Chloride (Normal Saline) 1,000 mls @ 50 mls/hr IV ASDIRECTED MARIA TERESA Last Admin: 05/05/17 10:34 Dose: 50 mls/hr Losartan Potassium (Cozaar) 25 mg PO DAILY [facility] Last Admin: 05/05/17 09:03 Dose: 25 mg Ondansetron HCl (Zofran) 4 mg IVPUSH Q4H PRN PRN Reason: Nausea Bisoprolol 5 Mg 1 each PO DAILY [facility] Sodium Chloride (Saline Flush) 10 ml FLUSH ASDIRECTED PRN PRN Reason: Keep Vein Open Sodium Chloride (Saline Flush) 2.5 ml FLUSH ASDIRECTED PRN PRN Reason: Keep Vein Open Discontinued Medications Sodium Chloride (Normal Saline) 1,000 mls @ 999 mls/hr IV .Bolus ONE Stop: 05/04/17 08:21 Last Admin: 05/04/17 07:50 Dose: 999 mls/hr Sodium Chloride (Normal Saline) 1,000 mls @ 125 mls/hr IV ASDIRECTED [facility] Last Admin: 05/04/17 11:43 Dose: 125 mls/hr Iopamidol (Isovue Multipack-370 (76%)) 110 ml IVPUSH ONETIME STA Stop: 05/04/17 09:08 Last Admin: 05/04/17 09:24 Dose: 70 ml Ketorolac Tromethamine (Toradol) 15 mg IVPUSH ONETIME ONE Stop: 05/04/17 08:40 Last Admin: 05/04/17 08:44 Dose: 15 mg Pneumococcal Polyvalent Vaccine (Pneumovax 23) 0.5 ml IM .ONCE ONE Stop: 05/04/17 12:48 - Exam General: Reports: Alert, Oriented, Cooperative, No Acute Distress Lungs: Reports: Clear to Auscultation, Normal Respiratory Effort Cardiovascular: Reports: Regular Rate, Regular Rhythm GI/Abdominal Exam: Normal Bowel Sounds, Soft, Non-Tender, No Organomegaly, No Distention, No Abnormal Bruit, No Mass, Pelvis Stable Extremities: Normal Inspection, Normal Range of Motion, Non-Tender, No Pedal Edema, Normal Capillary Refill Psy/Mental Status: Reports: Alert, Normal Affect, Normal Mood *Q Meaningful Use (DIS) - VTE *Q VTE Criteria *Q: - Stroke *Q Stroke Criteria *Q: - AMI *Q AMI Criteria *Q:
== END 2017-05-05 14:00 | disposition home or self-care (01) | DRG 378 ==
LOC: MW.ED 07:18 → MW.MS 10:09
PROVIDERS: ADMIT Family Medicine; ATTEND Family Medicine
PROC: 30233N1 Transfusion of Nonautologous Red Blood Cells into Peripheral Vein, Percutaneous Approach (ICD-10-PCS; principal; 2017-05-04)
PROC: 3E0234Z Introduction of Serum, Toxoid and Vaccine into Muscle, Percutaneous Approach (ICD-10-PCS; 2017-05-05)
DX: K92.2 Gastrointestinal hemorrhage, unspecified (principal); D62 Acute posthemorrhagic anemia; K29.71 Gastritis, unspecified, with bleeding; I48.91 Unspecified atrial fibrillation; R22.1 Localized swelling, mass and lump, neck; R79.89 Other specified abnormal findings of blood chemistry; I10 Essential (primary) hypertension; Z79.899 Other long term (current) drug therapy; Z95.0 Presence of cardiac pacemaker; Z23 Encounter for immunization
CPT/HCPCS: 36415; 36430; 74174; 74174-26; 80053; 81001; 82272; 83690; 83735; 84100; 84484; 85014; 85018; 85025; 85610; 86677; 86850; 86900; 86901; 86920; 86921; 86922; 90732; 93005; 96361; 96374; 99283; 99285-25; A9270-GY; C9113; J1885; J7040; P9016; Q9967

== ENCOUNTER 2017-07-06 08:39 | Day surgery (SDC) | payer OTHER, SELFPAY ==
[~2017-07-06 08:39] MED LIST: Lactated Ringers 1,000 ML IV SCH; Sodium Chloride 0.9% 10 ML Syringe FLUSH PRN; Sodium Chloride 0.9% 2.5 ML Syringe FLUSH PRN
--- NOTE | 2017-07-06 09:37 | PCM.PREANE ---
Preanesthetic Assessment - Anesthesia/Transfusion/Family Hx Anesthesia History: Prior Anesthesia Without Reaction Family History of Anesthesia Reaction: No Transfusion History: Unknown Intubation History: Unknown - Review of Systems General: Weakness, Fatigue Pulmonary: No Symptoms (remote hx of TB) Cardiovascular: No Symptoms (hx of pacemaker. hx of Afib) Gastrointestinal: Decreased Appetite, Melena (recent admission for GI bleed) Neurological: No Symptoms (charted hx of stroke. pt and family denies) Other: Reports: Easy Bleeding (has been on plavix. stopped since gi bleed) - Physical Assessment NPO Status Date: 07/06/17 NPO Status Time: 06:30 (clear liquids) Height: 1.55 m Weight: 41.277 kg ASA Class: 3 Mental Status: Alert & Oriented x3 Airway Class: Mallampati = 1 Dentition: Reports: Dentures, Missing Tooth/Teeth (dentures upper and lower. hx of cleft palate repair) Thyro-Mental Finger Breadths: 3 Mouth Opening Finger Breadths: 3 ROM/Head Extension: Full Lungs: Clear to Auscultation, Normal Respiratory Effort Cardiovascular: Regular Rate, Regular Rhythm - Allergies Allergies/Adverse Reactions: Allergies Allergy/AdvReac Type Severity Reaction Status Date / Time No Known Allergies Allergy Verified 07/04/17 10:03 - Blood Blood Available: No - Acknowledgements Anesthesia Type Planned: MAC Pt an Appropriate Candidate for the Planned Anesthesia: Yes Alternatives and Risks of Anesthesia Discussed w Pt/Guardian: Yes Pt/Guardian Understands and Agrees with Anesthesia Plan: Yes PreAnesthesia Questionnaire HEENT History: Reports: Cataract, Glaucoma, Impaired Vision Other HEENT History: 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 Cardiovascular History: Reports: High Cholesterol, Hypertension Other Cardiovascular History: with pacemaker Respiratory History: Reports: SOB Other Respiratory History: TB 1985 Gastrointestinal History: Reports: GI Bleed Genitourinary History: Reports: None [employer] History: Reports: Musculoskeletal History: Reports: Back Pain, Chronic, Fracture, RA Other Musculoskeletal History: hx of fx ribs Neurological History: Reports: Other (See Below) Other Neuro History: states hx of stroke on MRI...no symptoms or residual Psychiatric History: Reports: None Endocrine/Metabolic History: Reports: Osteoporosis Hematologic History: Reports: Anemia - Infectious Disease History Infectious Disease History: Reports: TB - Past Surgical History Head Surgeries/Procedures: Reports: None Other HEENT Surgeries/Procedures: cleft lip repair Cardiovascular Surgical History: Reports: Pacer Female Surgical History: Reports: Section - SUBSTANCE USE Smoking Status *Q: Never Smoker Second Hand Smoke Exposure: No Recreational Drug Use History: No - HOME MEDS Home Medications: Home Meds Bisoprolol [Zebeta] 5 mg PO DAILY 06/10/16 [History] Losartan [Cozaar] 25 mg PO DAILY 06/10/16 [History] atorvaSTATin [Lipitor] 10 mg PO BEDTIME 06/10/16 [History] Acetaminophen [Tylenol] 650 mg PO Q6H PRN tablet 05/05/17 [Rx] Pantoprazole Sodium [Protonix] 40 mg PO BID #60 tablet.dr 05/05/17 [Rx] Sucralfate [Carafate] 1 gm PO BID 07/04/17 [History] - CURRENT (IN HOUSE) MEDS Current Meds: Current Medications Lactated Ringer's (Ringers, Lactated) 1,000 mls @ 125 mls/hr IV ASDIRECTED MARIA TERESA Sodium Chloride (Saline Flush) 10 ml FLUSH ASDIRECTED PRN PRN Reason: Keep Vein Open Sodium Chloride (Saline Flush) 2.5 ml FLUSH ASDIRECTED PRN PRN Reason: Keep Vein Open
[2017-07-06] MEDS ORDERED: Lidocaine 2% 5 ML SDV ONE (09:41)
[2017-07-06] MEDS ORDERED: Propofol 200 MG/20 ML SDV ONE ×2 (09:41)
[2017-07-06] MEDS ORDERED: Midazolam 1 MG/ML 2 ML SDV ONE (09:46)
--- NOTE | 2017-07-06 11:11 | PCM.POSTAN ---
POST ANESTHESIA ASSESSMENT - MENTAL STATUS Mental Status: Alert, Oriented - RESPIRATORY Respiratory Status: Respiratory Rate WNL, Airway Patent, O2 Saturation Stable - CARDIOVASCULAR CV Status: Pulse Rate WNL, Blood Pressure Stable - GASTROINTESTINAL GI Status: No Symptoms - POST OP HYDRATION Hydration Status: Adequate & Stable
--- NOTE | 2017-07-06 11:55 | PCM.OPNOTE ---
- General Post-Op/Procedure Note Date of Surgery/Procedure: 07/06/17 Operative Procedure(s): Diagnostic EGD and colonoscopy Findings: Paraesophageal hernia, stomach ulcer, severe gastritis and duodenitis. Splenic flexure polyp. Pre Op Diagnosis: GI bleed Post-Op Diagnosis: Paraesophageal hernia, gastritis, duodenitis, stomach ulcer, splenic flexure polyp Anesthesia Technique: [facility] Primary Surgeon: Toshia Clark Condition: Good Free Text/Narrative:: Intake & Output 07/05/17 07/06/17 07/06/17 22:59 06:59 14:59 Intake Total 800 Balance 800
--- NOTE | 2017-07-06 12:08 | PCM48HPAN ---
Post Anesthesia Note - EVALUATION WITHIN 48HRS OF ANESTHETIC Vital Signs in Normal Range: Yes Patient Participated in Evaluation: Yes Respiratory Function Stable: Yes Airway Patent: Yes Cardiovascular Function Stable: Yes Hydration Status Stable: Yes Pain Control Satisfactory: Yes Nausea and Vomiting Control Satisfactory: Yes Mental Status Recovered: Yes
[2017-07-06 13:49] VITALS: BP 110/77
--- NOTE | 2017-07-06 17:35 | OR ---
SURGEON: TOSHIA CLARK MD DATE OF PROCEDURE: 07/06/2017 PREOPERATIVE DIAGNOSIS: Gastrointestinal bleed. POSTOPERATIVE DIAGNOSES: 1. Paraesophageal hernia. 2. Karl's ulcer. 3. Severe gastritis and duodenitis. 4. Splenic flexure polyp. PROCEDURE PERFORMED: Diagnostic EGD and colonoscopy. ENDOSCOPIST: Toshia Clark MD. INSTRUMENT USED: Olympus endoscope and colonoscope. ANESTHESIA: MAC. EXTENT OF EXAM: To the second portion of duodenum, to the cecum. PREPARATION: Good. LIMITATIONS: None. INDICATION FOR EXAMINATION: The patient is a 77-year-old female, who was hospitalized earlier this fall with an acute GI bleed requiring a blood transfusion. She has been treated with pantoprazole and Carafate, and has not had any further stigmata of GI bleed. The decision was made to perform a diagnostic EGD and colonoscopy, note that she is stable. We discussed the procedure as well as expected perioperative course. I discussed the risks, including bleeding, infection, and damage to surrounding structures, including perforation. The patient verbalized understanding and wishes to proceed. PROCEDURE IN DETAIL: The patient was brought into the endoscopy suite and placed in a beach chair position. A time-out was completed verifying the patient's name, age, date of , allergies, and procedure to be performed. Care was taken to place a bite block gently in the patient's mouth that she has several loose teeth. Monitored anesthesia care was induced and continuous oxygen was provided via nasal cannula throughout the procedure. After adequate sedation was achieved, a well lubricated endoscope was placed in the patient's mouth and advanced under direct visualization to the level of second portion of the duodenum. This appeared normal and a photograph was taken. The scope was then fully withdrawn while examining the color, texture, anatomy, and integrity of the mucosa of the upper GI tract. The patient was found to have severe duodenitis of the duodenal bulb and however, I did not notice any ulceration or stigmata of bleeding. The scope was then brought into the stomach and a photograph was taken of the pylorus and GE junction. The patient appeared to have a paraesophageal hernia. Biopsies were taken of the gastric antrum, body, and fundus and sent for H. pylori and histologic testing. The patient appeared to have a [id number] gastritis throughout the stomach. The patient had an ulcer along the paraesophageal hernia consistent with a Karl's ulcer. I attempted to take a biopsy of this area, however it was very friable and bled easily just by touching it with the camera. To avoid any further GI bleeding, I aborted taking any biopsies of the ulcer site. The scope was then brought into the distal esophagus and a photograph was taken of the GE junction which appeared healthy. The distal esophagus had no evidence of esophagitis. The remainder of the esophageal mucosa appeared free of pathology. The scope was then removed from the patient and this portion of the procedure was terminated. The patient was then placed in the left lateral decubitus position and a digital rectal exam was performed. This exam was within normal limits. A well lubricated colonoscope was inserted into the rectum and advanced under direct visualization to the level of cecum. The patient's colon was extremely tortuous making this very difficult, so great care was taken not to damage the colon during this process. Once I reached the cecum, I identified it both visual and anatomic landmarks. A photograph was taken of the cecal cap. Due to the amount of looping of the colonoscope proximally, I did not retroflex the scope within the cecum. The scope was then fully withdrawn while examining the color, texture, anatomy, and integrity of the mucosa from the cecum to the anal canal. The patient was noted to have one 2 to 3 mm polyp at the splenic flexure. This was removed using a cold biopsy forceps and sent to pathology. The scope was then brought into rectum and retroflexed to allow visualization of the anal canal opening. This appeared normal and a photograph was taken. The scope was then straightened out and removed from the patient. The cecum to anus time was 8 minutes. The patient tolerated the procedure well and was taken to PACU in stable condition. ENDOSCOPIC DIAGNOSES: 1. Paraesophageal hernia. 2. Karl's ulcer. 3. Gastritis and duodenitis. 4. Splenic flexure polyp. RECOMMENDATIONS: I would recommend the patient continue the pantoprazole. I will get an esophagram to confirm that the patient has a paraesophageal hernia. If she truly does have a paraesophageal hernia, this may require a repair in order to allow healing of the ulcer. I may need to refer her on for further diagnostic workup and treatment. BRETT / LYLA /[id number]
== END 2017-07-06 11:30 | disposition home or self-care (01) ==
LOC: MW.SDS 08:39
PROVIDERS: ATTEND Surgery
DX: D12.3 Benign neoplasm of transverse colon (principal); K29.50 Unspecified chronic gastritis without bleeding; K27.1 Acute peptic ulcer, site unspecified, with perforation; K44.9 Diaphragmatic hernia without obstruction or gangrene; K29.80 Duodenitis without bleeding; I48.91 Unspecified atrial fibrillation; I10 Essential (primary) hypertension; E78.00 Pure hypercholesterolemia, unspecified; M81.0 Age-related osteoporosis without current pathological fracture; Z86.11 Personal history of tuberculosis; Z86.73 Personal history of transient ischemic attack (TIA), and cerebral infarction without residual deficits; Z79.01 Long term (current) use of anticoagulants; Z79.899 Other long term (current) drug therapy; Z95.0 Presence of cardiac pacemaker; Z98.49 Cataract extraction status, unspecified eye; Z98.890 Other specified postprocedural states; Z82.49 Family history of ischemic heart disease and other diseases of the circulatory system
CPT/HCPCS: 43239; 45380; 88305; 88312; J2250; J7120; 00740; J2704

== ENCOUNTER 2017-10-05 09:39 | Day surgery (SDC) | payer OTHER, SELFPAY ==
[~2017-10-05 09:39] MED LIST changes: +Lidocaine 2% 5 ML SDV ONE; +Propofol 200 MG/20 ML SDV ONE
--- NOTE | 2017-10-05 10:32 | PCM.PREANE ---
Preanesthetic Assessment - Anesthesia/Transfusion/Family Hx Anesthesia History: Prior Anesthesia Without Reaction Family History of Anesthesia Reaction: No Transfusion History: Prior Transfusion Without Reaction Intubation History: Unknown - Review of Systems General: No Symptoms Pulmonary: No Symptoms Cardiovascular: No Symptoms Gastrointestinal: Decreased Appetite, Other (recent history of gastric ulcer) Neurological: No Symptoms Other: Reports: None - Physical Assessment Height: 1.55 m Weight: 39.916 kg ASA Class: 3 Mental Status: Alert & Oriented x3 Airway Class: Mallampati = 2 Dentition: Reports: Dentures (upper), Partial (lower) Thyro-Mental Finger Breadths: 2 Mouth Opening Finger Breadths: 2 ROM/Head Extension: Limited/Partial Lungs: Clear to Auscultation, Normal Respiratory Effort Cardiovascular: Regular Rate, Regular Rhythm - Allergies Allergies/Adverse Reactions: Allergies Allergy/AdvReac Type Severity Reaction Status Date / Time No Known Allergies Allergy Verified 09/29/17 14:16 - Blood Blood Available: No - Anesthesia Plan Pre-Op Medication Ordered: None - Acknowledgements Anesthesia Type Planned: MAC Pt an Appropriate Candidate for the Planned Anesthesia: Yes Alternatives and Risks of Anesthesia Discussed w Pt/Guardian: Yes Pt/Guardian Understands and Agrees with Anesthesia Plan: Yes PreAnesthesia Questionnaire HEENT History: Reports: Glaucoma Other HEENT History: 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, top and bottom dentures Cardiovascular History: Reports: Arrhythmia, High Cholesterol, Hypertension, Pacemaker (5 years ago), Other (See Below) (mild stroke on MRI (never had any symptoms)) Other Cardiovascular History: with pacemaker Respiratory History: Reports: SOB Other Respiratory History: TB 1985 Gastrointestinal History: Reports: Gastritis, Other (See Below) Other Gastrointestinal History: GI bleed, gastric ulcer diagnosed in june improved on medications Genitourinary History: Reports: None [employer] History: Reports: Musculoskeletal History: Reports: Back Pain, Chronic, Osteoarthritis, Osteoporosis Other Musculoskeletal History: hx of cracked ribs Neurological History: Reports: Other (See Below) Other Neuro History: states hx of stroke on MRI...no symptoms or residual Psychiatric History: Reports: None Endocrine/Metabolic History: Reports: Osteoporosis Hematologic History: Reports: Anemia, Blood Transfusion(s) Other Hematologic History: transfusion in 2016 Dermatologic History: Reports: Other (See Below) Other Dermatologic History: dry skin - Infectious Disease History Infectious Disease History: Reports: TB - Past Surgical History Head Surgeries/Procedures: Reports: None HEENT Surgical History: Reports: Cataract Surgery Other HEENT Surgeries/Procedures: cleft lip repair Cardiovascular Surgical History: Reports: Other (See Below) Other Cardiovascular Surgeries/Procedures: pacemaker placement GI Surgical History: Reports: EGD Female Surgical History: Reports: Section Musculoskeletal Surgical History: Reports: None - SUBSTANCE USE Smoking Status *Q: Never Smoker Second Hand Smoke Exposure: No Recreational Drug Use History: No - HOME MEDS Home Medications: Home Meds Bisoprolol [Zebeta] 5 mg PO DAILY 06/10/16 [History] Losartan [Cozaar] 25 mg PO DAILY 06/10/16 [History] atorvaSTATin [Lipitor] 10 mg PO BEDTIME 06/10/16 [History] Pantoprazole Sodium [Protonix] 40 mg PO BID #60 tablet.dr 05/05/17 [Rx] Sucralfate [Carafate] 1 gm PO QID 07/04/17 [History] Acetaminophen [Tylenol] 1 - 2 tab PO Q6H PRN 09/29/17 [History] - CURRENT (IN HOUSE) MEDS Current Meds: Current Medications Lactated Ringer's (Ringers, Lactated) 1,000 mls @ 125 mls/hr IV ASDIRECTED MARIA TERESA Last Admin: 10/05/17 10:06 Dose: 125 mls/hr Sodium Chloride (Saline Flush) 10 ml FLUSH ASDIRECTED PRN PRN Reason: Keep Vein Open Sodium Chloride (Saline Flush) 2.5 ml FLUSH ASDIRECTED PRN PRN Reason: Keep Vein Open Discontinued Medications Lidocaine (Xylocaine-Mpf 2%) Confirm Administered Dose 5 ml .ROUTE .STK-MED ONE Stop: 10/05/17 09:12 Propofol (Diprivan 20 Ml) Confirm Administered Dose 400 mg .ROUTE .STK-MED ONE Stop: 10/05/17 09:12
--- NOTE | 2017-10-05 11:28 | PCM.OPNOTE ---
- General Post-Op/Procedure Note Date of Surgery/Procedure: 10/05/17 Operative Procedure(s): Diagnostic EGD Findings: Well healed ulcer site Pre Op Diagnosis: H pylori gastric ulcer Post-Op Diagnosis: Ulcer site healed Anesthesia Technique: MAC Primary Surgeon: Toshia Clark Condition: Good
--- NOTE | 2017-10-05 12:10 | PCM48HPAN ---
Post Anesthesia Note - EVALUATION WITHIN 48HRS OF ANESTHETIC Vital Signs in Normal Range: Yes Patient Participated in Evaluation: Yes Respiratory Function Stable: Yes Airway Patent: Yes Cardiovascular Function Stable: Yes Hydration Status Stable: Yes Pain Control Satisfactory: Yes Nausea and Vomiting Control Satisfactory: Yes Mental Status Recovered: Yes Resp Rate: 12 - COMMENTS/OBSERVATIONS Free Text/Narrative:: no anesthesia problems
[2017-10-05 13:05] VITALS: BP 151/90
--- NOTE | 2017-10-05 13:54 | OR ---
SURGEON: CARLOS MCPHERSON MD DATE OF PROCEDURE: 10/05/2017 PREOPERATIVE DIAGNOSIS: Helicobacter infection, gastric ulcer. POSTOPERATIVE DIAGNOSIS: Normal esophagogastroduodenoscopy. PROCEDURE PERFORMED: Diagnostic esophagogastroduodenoscopy. ANESTHESIA: MAC. INSTRUMENT USED: Olympus endoscope. EXTENT OF EXAM: To the 2nd portion of duodenum. PREPARATION: Good. LIMITATIONS: None. INDICATIONS FOR EXAMINATION: The patient is a 77-year-old female, who is scoped back in June. She was found to have a very large ulcer along the lesser curvature and severe gastritis. Her biopsies came back positive for H pylori infection and she was treated appropriately. Followup testing has shown her to be negative for any residual H pylori disease. The patient and I discussed the need to perform a followup endoscopy to ensure that the ulcer in her stomach has healed. We discussed the procedure, expected perioperative course, and risks including bleeding or perforation. The patient verbalized understanding and wishes to proceed. PROCEDURE IN DETAIL: The patient was brought into the endoscopy suite and placed in the left lateral decubitus position. A time-out was completed verifying the patient's name, age, date of , allergies, and procedure to be performed. A bite block was placed in the patient's mouth and monitored anesthesia care induced. Continuous oxygen was provided via nasal cannula throughout the procedure. After adequate sedation was achieved, a well lubricated endoscope was placed in the patient's mouth and advanced under direct visualization to the level of the 2nd portion of duodenum. This appeared normal and a photograph was taken. The scope was then fully withdrawn while examining the color, texture, anatomy, and integrity of the mucosa of the upper GI tract. The patient had no further evidence of any duodenitis. The scope was brought into the stomach and a photograph was taken of the gastric pylorus and GE junction. These both appeared normal. The area of the previous ulcer was well healed with only a small residual scar. The remainder of the gastric mucosa was free of inflammation or ulceration. The scope was brought into the distal esophagus and a photograph was taken of the GE junction, which appeared normal. The remainder of the esophagus looked normal with no evidence of esophagitis. The scope was removed from the patient and the procedure terminated. The patient tolerated the procedure well and was taken to PACU in stable condition. ENDOSCOPIC DIAGNOSIS: Normal esophagogastroduodenoscopy. RECOMMENDATIONS: The patient can stop taking the pantoprazole and sucralfate. She can follow up in clinic on an as-needed basis. BRETT / LYLA /[id number]
== END 2017-10-05 12:25 | disposition home or self-care (01) ==
LOC: MW.SDS 09:39
PROVIDERS: ATTEND Surgery
DX: K25.9 Gastric ulcer, unspecified as acute or chronic, without hemorrhage or perforation (principal); B96.81 Helicobacter pylori [H. pylori] as the cause of diseases classified elsewhere; M19.90 Unspecified osteoarthritis, unspecified site; I48.91 Unspecified atrial fibrillation; M47.816 Spondylosis without myelopathy or radiculopathy, lumbar region; E78.5 Hyperlipidemia, unspecified; I10 Essential (primary) hypertension; M81.0 Age-related osteoporosis without current pathological fracture; M06.9 Rheumatoid arthritis, unspecified; K31.89 Other diseases of stomach and duodenum; Z95.0 Presence of cardiac pacemaker; Z79.899 Other long term (current) drug therapy
CPT/HCPCS: 43235; J7120; J2704